=== PATIENT | female | born 1950 | race Caucasian/White ===

== ENCOUNTER 2021-08-10 10:43 | Outpatient (REF) | payer MEDICARE, SELFPAY ==
[2021-08-10 10:46] LABS: MANUAL DIFF FLAG NO
[2021-08-10 10:58] LABS: Appearance Urine HAZY; Color Urine YELLOW; Glucose Urine UA NEG (NEG); Leukocyte Esterase Urine 2+ (NEG); Nitrite Urine POS (NEG); PH 5.5 (5.0-8.0); Specific Gravity - Urine 1.025 (1.005-1.025); Urine Blood 1+ (NEG); Urine Ketones NEG (NEG); Urine Protein NEG (NEG-TRACE)
[2021-08-10 11:04] LABS: Basophils Percent Auto 0.2 % (0-2); Eosinophils Absolute Auto 0.1 X10*3/uL (0.0-0.4); Eosinophils Percent Auto 1.4 % (0-4); Hematocrit 47.4 % (37.0-47.0); Hemoglobin 15.2 g/dl (12.0-16.0); Imm Gran Abs Auto 0.05 X10*3/uL (0.00-0.03); Imm Gran Pct Auto 0.5 % (0.0-0.4); Lymphocytes Percent Auto 40.9 % (20-40); Mean Corpuscular HGB Conc 32.1 g/dl (31.0-35.0); Mean Corpuscular Hemoglobin 30.2 pg (27.0-33.0); Mean Corpuscular Volume 94.2 fL (80.0-98.0); Mean Platelet Volume 11.9 fL (9.4-12.3); Monocytes Absolute Auto 0.8 X10*3/uL (0.1-1.2); Monocytes Percent Auto 8.3 % (2-11); Neutrophils Absolute Auto 4.7 x10*3/uL (2.0-8.3); Neutrophils Percent Auto 48.7 % (45-73); Platelet Count 242 X10*3/uL (160-400); Red Blood Count 5.03 X10*6/uL (4.20-5.50); White Blood Count 9.7 X10*3/uL (4.8-10.8)
[2021-08-10 11:16] LABS: Alanine Aminotransferase 15 U/L (0-31); Albumin Level 3.9 g/dL (3.5-5.0); Alkaline Phosphatase 86 U/L (39-117); Anion Gap 11 (12-20); Aspartate Amino Transferase 18 U/L (5-31); Bilirubin Total 0.5 mg/dL (0.0-1.0); Blood Urea Nitrogen 20 mg/dL (9-16); Calcium 9.5 mg/dL (8.4-10.2); Carbon Dioxide 27 mmol/L (22-29); Chloride 109 mmol/L (96-108); Cholesterol 227 mg/dL; Estimated Glomerular Filt Rate > 60; Glucose Fasting 94 mg/dL (60-99); HDL Cholesterol 58 mg/dL; LDL Cholesterol Calculated 134 mg/dl; Potassium 4.1 mmol/L (3.3-5.1); Sodium 143 mmol/L (135-145); Total Protein 6.7 g/dL (6.5-8.0); Triglycerides 179 mg/dL
[2021-08-10 11:27] LABS: Bacteria Urine 4+ /LPF; RBC Urine 0-2 /HPF (0); Renal Epithelial Cells Urine TRACE /LPF; Squamous Epithelial Cell Urine 3+ /LPF
== END 2021-08-10 10:44 | disposition home or self-care (01) ==
LOC: HO.LNP 10:43
PROVIDERS: PCP Internal Medicine; Visit Provider Internal Medicine
DX: K58.9 Irritable bowel syndrome, unspecified (principal); M35.3 Polymyalgia rheumatica
CPT/HCPCS: 80053; 80061; 81001; 81003; 85025

== ENCOUNTER 2022-02-23 11:02 | Outpatient (REF) | payer MEDICARE, SELFPAY ==
[2022-02-23 11:26] LABS: Cholesterol 195 mg/dL; HDL Cholesterol 51 mg/dL; LDL Cholesterol Calculated 105 mg/dl; Triglycerides 195 mg/dL
[2022-02-23 12:42] LABS: Reflex LDLD? No
== END 2022-02-23 11:03 | disposition home or self-care (01) ==
LOC: HO.LNP 11:02
PROVIDERS: Visit Provider Internal Medicine
DX: E78.00 Pure hypercholesterolemia, unspecified (principal)
CPT/HCPCS: 80061

== ENCOUNTER 2022-08-12 10:16 | Outpatient (REF) | payer MEDICARE, SELFPAY ==
[2022-08-12 10:19] LABS: MANUAL DIFF FLAG NO
[2022-08-12 10:53] LABS: Appearance Urine Cloudy; Color Urine Yellow; Glucose Urine UA Negative (Negative); Leukocyte Esterase Urine Moderate (2+) (Negative); Nitrite Urine Positive (Negative); PH 5.5 (5.0-9.0); UMIC TRIGGER UACC YES; Urine Blood Small (1+) (Negative); Urine Ketones Negative (Negative); Urine Protein Negative (Neg-Trace)
[2022-08-12 11:04] LABS: Basophils Absolute Auto 0.1 X10*3/uL (0.0-0.2); Basophils Percent Auto 0.7 % (0-2); Eosinophils Absolute Auto 0.4 X10*3/uL (0.0-0.4); Eosinophils Percent Auto 5.2 % (0-4); Hematocrit 45.2 % (37.0-47.0); Hemoglobin 14.8 g/dl (12.0-16.0); Imm Gran Abs Auto 0.03 X10*3/uL (0.00-0.03); Imm Gran Pct Auto 0.4 % (0.0-0.4); Lymphocytes Absolute Auto 3.2 X10*3/uL (1.2-4.9); Lymphocytes Percent Auto 42.6 % (20-40); Mean Corpuscular HGB Conc 32.7 g/dl (31.0-35.0); Mean Corpuscular Volume 91.7 fL (80.0-98.0); Mean Platelet Volume 11.9 fL (9.4-12.3); Monocytes Absolute Auto 0.6 X10*3/uL (0.1-1.2); Monocytes Percent Auto 8.2 % (2-11); Neutrophils Absolute Auto 3.2 x10*3/uL (2.0-8.3); Neutrophils Percent Auto 42.9 % (45-73); Platelet Count 229 X10*3/uL (160-400); Red Blood Count 4.93 X10*6/uL (4.20-5.50); Red Cell Distribution Width 12.7 % (11.0-16.0); White Blood Count 7.5 X10*3/uL (4.8-10.8)
[2022-08-12 11:07] LABS: Alanine Aminotransferase 25 U/L (0-31); Albumin Level 3.9 g/dL (3.5-5.0); Alkaline Phosphatase 100 U/L (39-117); Anion Gap 9 (12-20); Aspartate Amino Transferase 26 U/L (5-31); Bilirubin Total 0.7 mg/dL (0.0-1.0); Blood Urea Nitrogen 21 mg/dL (9-16); Calcium 9.2 mg/dL (8.4-10.2); Carbon Dioxide 28 mmol/L (22-29); Chloride 109 mmol/L (96-108); Cholesterol 201 mg/dL; Estimated Glomerular Filt Rate 55; Glucose Fasting 100 mg/dL (60-99); HDL Cholesterol 39 mg/dL; LDL Cholesterol Calculated 130 mg/dl; Potassium 4.4 mmol/L (3.3-5.1); Sodium 142 mmol/L (135-145); Total Protein 6.3 g/dL (6.5-8.0); Triglycerides 164 mg/dL
[2022-08-12 11:13] LABS: Bacteria Urine 4+ (None Seen); Hyaline Casts Urine 0-2 /LPF (0-2); RBC Urine 0-2 /HPF (0-2); UACC Culture Trigger YES; WBC Urine >50 /HPF (0-5)
== END 2022-08-12 10:17 | disposition home or self-care (01) ==
LOC: HO.LNP 10:16
PROVIDERS: Visit Provider Internal Medicine
DX: I10 Essential (primary) hypertension (principal); E78.00 Pure hypercholesterolemia, unspecified; Z87.448 Personal history of other diseases of urinary system
CPT/HCPCS: 80053; 80061; 81001; 85025; 87086; 87088; 87186

== ENCOUNTER 2022-08-19 15:37 | Outpatient (REF) | payer MEDICARE, SELFPAY ==
[2022-08-19 15:45] LABS: Appearance Urine Clear; Color Urine Yellow; Glucose Urine UA Negative (Negative); Leukocyte Esterase Urine Small (1+) (Negative); Nitrite Urine Negative (Negative); PH 5.5 (5.0-9.0); UMIC TRIGGER UACC YES; Urine Blood Negative (Negative); Urine Ketones Negative (Negative); Urine Protein Negative (Neg-Trace)
[2022-08-19 15:47] LABS: Bacteria Urine 4+ (None Seen); Hyaline Casts Urine 0-2 /LPF (0-2); RBC Urine 0-2 /HPF (0-2); UACC Culture Trigger YES
== END 2022-08-19 15:38 | disposition home or self-care (01) ==
LOC: HO.LNP 15:37
PROVIDERS: Visit Provider Internal Medicine
DX: R31.9 Hematuria, unspecified (principal)
CPT/HCPCS: 81001; 87086; 87088; 87186

== ENCOUNTER 2022-09-16 12:14 | Outpatient (REF) | payer MEDICARE, SELFPAY ==
[2022-09-16 12:27] LABS: Appearance Urine Clear; Color Urine Yellow; Glucose Urine UA Negative (Negative); Leukocyte Esterase Urine Trace (Negative); Nitrite Urine Negative (Negative); Specific Gravity - Urine 1.015 (1.005-1.025); UMIC TRIGGER UACC YES; Urine Blood Negative (Negative); Urine Ketones Negative (Negative); Urine Protein Negative (Neg-Trace)
[2022-09-16 12:30] LABS: Bacteria Urine None Seen (None Seen); Hyaline Casts Urine 0-2 /LPF (0-2); RBC Urine 0-2 /HPF (0-2); WBC Urine 0-5 /HPF (0-5)
== END 2022-09-16 12:15 | disposition home or self-care (01) ==
LOC: HO.LNP 12:14
PROVIDERS: Visit Provider Internal Medicine
DX: R31.9 Hematuria, unspecified (principal)
CPT/HCPCS: 81001

== ENCOUNTER 2024-08-24 07:15 | Outpatient (REF) | payer MEDICARE, SELFPAY ==
[2024-08-24 10:43] LABS: MANUAL DIFF FLAG NO
[2024-08-24 11:11] LABS: Basophils Percent Auto 0.4 % (0-2); Eosinophils Absolute Auto 0.2 X10*3/uL (0.0-0.4); Eosinophils Percent Auto 2.8 % (0-4); Hematocrit 48.3 % (37.0-47.0); Hemoglobin 15.7 g/dl (12.0-16.0); Imm Gran Abs Auto 0.04 X10*3/uL (0.00-0.03); Imm Gran Pct Auto 0.5 % (0.0-0.4); Lymphocytes Percent Auto 38.2 % (20-40); Mean Corpuscular HGB Conc 32.5 g/dl (31.0-35.0); Mean Corpuscular Hemoglobin 29.3 pg (27.0-33.0); Mean Corpuscular Volume 90.1 fL (80.0-98.0); Mean Platelet Volume 11.9 fL (9.4-12.3); Monocytes Absolute Auto 0.6 X10*3/uL (0.1-1.2); Monocytes Percent Auto 7.6 % (2-11); Neutrophils Absolute Auto 3.9 x10*3/uL (2.0-8.3); Neutrophils Percent Auto 50.5 % (45-73); Platelet Count 230 X10*3/uL (160-400); Red Blood Count 5.36 X10*6/uL (4.20-5.50); White Blood Count 7.8 X10*3/uL (4.8-10.8)
[2024-08-24 11:24] LABS: Alanine Aminotransferase 25 U/L (0-31); Albumin Level 3.9 g/dL (3.5-5.0); Alkaline Phosphatase 107 U/L (39-117); Anion Gap 11 (12-20); Aspartate Amino Transferase 28 U/L (5-31); Bilirubin Total 0.5 mg/dL (0.0-1.0); Blood Urea Nitrogen 18 mg/dL (9-16); Calcium 9.4 mg/dL (8.4-10.2); Carbon Dioxide 24 mmol/L (22-29); Chloride 110 mmol/L (96-108); Cholesterol 191 mg/dL (<200); Estimated Glomerular Filt Rate > 60; Glucose Fasting 95 mg/dL (60-99); HDL Cholesterol 46 mg/dL (>40); LDL Cholesterol Calculated 113 mg/dL (<100); Potassium 4.2 mmol/L (3.3-5.1); Sodium 141 mmol/L (135-145); Triglycerides 164 mg/dL (<150)
--- OUTSIDE RECORDS SUMMARY | 2024-08-24 11:30 | XMS_ITS ---
Author Organization [facility] Address [address] [place] [address] Care Team Providers Care Supervisor Hanging And Trimming Name Role Phone Vik Herring MD Primary Care Provider Cesar Arauz Unavailable [phone] ALLERGIES Allergen (clinical drug ingredient) Drug/Non Drug Allergy documented on EMR Reaction Allergy Type Onset Date Status Seasonal IC Unknown Drug Allergy Activ e REASON FOR VISIT Patient presents today for a colon screening/EGD MEDICATIONS Medication SIG (Take, Route, Fr equency, Duration) Notes Start Date End Date Status Omeprazole 20 MG TAKE 1 CAPSULE BY [facility] DAILY Oral Active Valsartan 80 MG 1 tablet Orally Once a day for 30 day(s) Active Sertraline HCl 100 MG 1 tablet Orally Once a day Active Calcium 1200 1 tab Oral once a day Active Vitamin D 400 UNIT/ML 2 ml Orally Once a day Active Fish Oil 1200 MG 1 capsule Orally Once a day Active IMMUNIZATIONS Vaccine Route Administration Date Status Comme nts Influenza Unknown 07/12/2024 Refused SOCIAL HISTORY Tobacco Use: Social History Observation Description Date Details (start date - stop date) Never Smoker NA - NA Sex Assigned At : Social History Observation Description Sex Assigned At Unknown Tobacco Use/Smoking Question Answer Notes Patient is a nonsmoker Alcohol Screen Question Answer Notes Did you have a drink contain ing alcohol in the past year? Yes How often did you have a dri nk containing alcohol in the past year? Monthly or less (1 point) How many drinks did you have on a typical day when you were drinking in the past year? 1 or 2 drinks (0 point) How often did you have 6 or more drinks on one occasion in the past year? Never (0 point) Points 1 Interpretation Negative PROBLEMS Problem Type ICD Code Onset Dates Problem Status W/U Status Risk SNOMED Code Notes Problem Chronic GERD (K21.9) Active confirmed Gastroesophagea l reflux disease (disorder) (184816859) Problem Encounter for screening for malignant neoplasm of colon (Z12.11) Active confirmed Screening for malignant neoplasm of colon (130205883) VITAL SIGNS BMI 32.97 kg/m2 07/12/2024 Blood pressure systolic 000 mm Hg 07/12/19 25 Blood pressure diastolic 00 mm Hg 025 Height 64 in 07/12/2024 Temperature 97.1 degrees Fahrenheit 07/12/19 25 Weight 192 lb 2 oz lbs 07/12/2024 Encounters Encounter Location Date Provider Diagnosis [facility] [address] [place] [address] 07/12/2024 Cesar Santamaria Other irritable bowel syndrome K58.8 ; Chronic GERD K21.9 ; Encounter for screening for malignant neoplasm of colon Z12.11 and Family history of colon cancer Z80.0 ASSESSMENTS Encounter Date Diagnosis Assessment Notes Treatment Notes Treatment Clinical Notes 07/12/2024 Other irritable bowel syndrome (ICD-10 - K58.8) 07/12/2024 Chronic GERD (ICD-10 - K21.9) 07/12/2024 Encounter for screening for malignant neoplasm of colon (ICD-10 - Z12.11) Stop fish oil for 1 week before the colonoscopy 07/12/2024 Family history of colon cancer (ICD-10 - Z80.0) PLAN OF TREATMENT Medication Medication Name Sig Start Date Stop Date Notes Omeprazole 20 MG TAKE 1 CAPSULE BY MOUTH DAILY Oral Treatment Notes Assessment Notes Encounter for screening for malignant neoplasm of colon Stop fish oil for 1 week before the colonoscopy Future Test Test Name Order Date COLONOSCOPY 07/12/2024 Next Appt Details Follow Up: prn, Reason: Provider Name:Cesar Henson Rosalio , 10/17/2024 10:30:00 AM, [address] [place] [address] , [place], [place], [phone], Progress Notes * Examination Category Sub-Category Detail Notes General Examination GENERAL APPEARANCE: pleasant , well nourished, well developed, in no acute distress HEAD: EYES: sclera non-icteric EARS: NOSE: THROAT: NECK/THYROID: no cervical lymphade nopathy, neck supple HEART: S1, S2 normal CHEST: LUNGS: clear to auscultatio n bilaterally ABDOMEN: normal bowel sounds, no guarding or rigidity, no guarding or rigidity, no masses palpable, soft, nontender, nondistended NEUROLOGIC: alert and oriented SKIN: nonjaundiced, no spi roberto angiomata EXTREMITIES: no edema PERIPHERAL PULSES: BACK: BREASTS: MUSCULOSKELETAL: MALE GENITOURINARY: LYMPH NODES: RECTAL EXAM: FEMALE GENITOURINARY: ORAL CAVITY: mucosa moist
--- OUTSIDE RECORDS SUMMARY | 2024-08-24 11:30 | XMS_ITS ---
Author Organization Vik Herring MD Address [address] [place], [place] [phone] Care Team Providers Care Operations Supervisor Name Role Phone Nima Vik Primary Care Provider Results Component Value Reference Range Notes Complete Blood Count Auto Di ff (Not yet reviewed by provider) Interpretation: Performing Lab:[facility], [address] [place] [phone] Notes/Report: White Blood Count 7.8 4.8-10.8 X10*3/uL Red Blood Count 5.36 4.20-5.50 X10*6/uL Hemoglobin 15.7 12.0-16.0 g/dl Hematocrit 48.3 37.0-47.0 % Mean Corpuscular Volume 90.1 80.0-98.0 fL Mean Corpuscular Hemoglobin 29.3 27.0-33.0 pg Mean Corpuscular HGB Conc 32.5 31.0-35.0 g/dl Red Cell Distribution Width 13.0 11.0-16.0 % Platelet Count 230 160-400 X10*3/uL Mean Platelet Volume 11.9 9.4-12.3 fL Neutrophils Percent Auto 50.5 45-73 % Imm Gran Pct Auto 0.5 0.0-0.4 % Lymphocytes Percent Auto 38.2 20-40 % Monocytes Percent Auto 7.6 2-11 % Eosinophils Percent Auto 2.8 0-4 % Basophils Percent Auto 0.4 0-2 % NRBC Pct Auto 0.0 0.0-0.2 /100WBC Neutrophils Absolute Auto 3.9 2.0-8.3 x10*3/u L Imm Gran Abs Auto 0.04 0.00-0.03 X10*3/uL Lymphocytes Absolute Auto 3.0 1.2-4.9 X10*3/u L Monocytes Absolute Auto 0.6 0.1-1.2 X10*3/uL Eosinophils Absolute Auto 0.2 0.0-0.4 X10*3/u L Basophils Absolute Auto 0.0 0.0-0.2 X10*3/uL NRBC Abs Auto 0.000 0.0-0.012 X10*3/uL REASON FOR VISIT yearly fasting labs Encounters Encounter Location Date Provider Diagnosis Vik Herring MD [address] [place] [address] Drive [address] [place], [place] [phone] 08/24/2024 Vik Herring Labile hypertension I10 and Hypercholesterolemia E78.00 Assessments Encounter Date Diagnosis (ICD Code) Assessment Notes Treatment Notes Treatment Clinical Notes Section Notes 08/24/2024 Labile hypertension (ICD-10 - I10) 08/24/2024 Hypercholesterolemia (ICD-10 - E78.00) Plan Of Treatment Pending Test Test Name Order Date Complete Blood Count Auto Diff 5 Comprehensive [place]. Panel Fast 5 Lipid Panel 08/24/2024 UA ClnCatch+Micro w/rflx Cult 08/24/2024 Next Appt Details Provider Name:Vik Snell ier, 08/30/2024 11:00:00 AM, [address] [place] [address] Drive, [address], [place], [place], [phone], Progress Notes * Regi WARNER ADOB:[birth year] (74 yo F)Acc No.[id number]:08/24/2024 Progress Note Patient:?Regi WARNER A Provider:?Vik Herring MD :1950???Age:74 Y???Sex:Female D ate:08/24/2024 Address:[address] [place] [address] [address] [id number] Subjective: * Chief Complaints: * ???1. Yearly fasting labs. * Medical History:? Objective: * Vitals:? Assessment: * Assessment: 1.?Labile hypertension - I10 (Primary)???2.?Hypercholesterolemia - E78.00??? Plan: * Treatment: 2.?Hypercholesterolemia?LAB: Complete Blood Count Auto Diff (Collection Date & Time - 08/24/2024 07:15 AM) ?LAB: Comprehensive [place]. Panel Fast ?LAB: Lipid Panel ?LAB: UA ClnCatch+Micro w/rflx Cult * Procedure Codes:?50968 VENIP UNCT, ROUTINE* * * The named appointment provid er may or may not be the originator of this progress note, and it is not deemed complete until electronically signed by the appointment provider. Sign off status: Pending * Provider:?Vik Herring MD Date:?0 08/24/2024 Generated for Angella wang/Selena/Nachoitting on:?08/24/2024 11:29 AM EST
--- OUTSIDE RECORDS SUMMARY | 2024-08-24 11:30 | XMS_ITS ---
Author Organization Vik Herring MD Address [address] [place] [phone] Care Team Providers Care Civil Rights Investigator Name Role Phone Nima Vik Primary Care Provider Allergies No Known Allergies Reason For Referral Reason HISTORY OF HEMATEMES IS Diagnosis 1 History of hematemes is (Z87.19) Referral Organization Vik Herring MD Referring Provider First Name Vik Referring Provider Last Name Nima Referring Provider Speciality Internal M edicine Referred Provider Cesar Thomson Referred Provider Specialty Gastroentero logy General Notes Veronica Hernandez 02/24/2024 11:30:47 AM EDT > DR THOMSON OFFICE GAVE ME AN APPT FOR [place] IN JULY THAT IS WHEN SHE IS DUE FOR COLONOSCOPY. THEY HAD ME FAX THE REFERRAL AND NOTES FOR DR THOMSON TO REVIEW IN THE EVENT THAT HE WOULD LIKE TO SEE HER SOONER, Veronica Hernandez 08/02/2024 08:01:21 AM >OFFICE NOTE RECD Referral Priority Routine Referral Appointment Date 07/12/2024 REASON FOR VISIT 6 month, last week felt sick to her stomach then vomited a little was light red in color but had a glass of red wine before, c/o ongoing sciatica pain Medications Medication SIG (Take, Route, Frequency, Duration) Notes Start Date End Date Status Omeprazole 20 MG ONE DAILY Act poncho Fluticasone Propionate 0.050 Milligram 2 sprays each nostril daily Nasally Once a day for 30 Not-Taking Nasacort Allergy 24HR 55 MCG/ACT 1 spray in each nostril Nasally Once a day Active Fish Oil 500 MG 1 capsule Orally Onc e a day Active Caltrate 600+D 600-400 MG-UNIT 1 tablet with food Orally Once a day Active Sertraline HCl 100 MG TAKE ONE TABLET BY MOUTH EVERY DAY for 90 Active Tylenol Extra Strength 500 MG 1 tablet as needed Orally every 6 hrs Not-Taking Valsartan 80 MG TAKE ONE TABLET BY MOUTH EVERY DAY Active Ibuprofen 800 MG 1 tablet with food o r milk as needed Orally Three times a day for 30 days 02/06/2019 Not-Taking ZyrTEC Allergy 10 MG 1 tablet Orally Onc e a day Not-Taking Vital Signs Blood pressure systolic 132 mm Hg 02/24/20 24 Blood pressure diastolic 70 mm Hg 024 Height 64 in 02/24/2024 Weight 192 lbs 02/24/2024 BMI 32.95 kg/m2 02/24/2024 Encounters Encounter Location Date Provider Diagnosis Vik Herring MD [address] [place] [phone] 02/24/2024 Vik Herring Irritable bowel syndrome without diarrhea K58.9 ; Sciatica of right side M54.31 and History of hematemesis Z87.19 Assessments Encounter Date Diagnosis (ICD Code) Assessment Notes Treatment Notes Treatment Clinical Notes Section Notes 02/24/2024 Irritable bowel syndrome without diarrhea (ICD-10 - K58.9) ia the cause of the bloating 02/24/2024 Sciatica of right side (ICD-10 - M54.31) if not better to pssp 02/24/2024 History of hematemesis (ICD-10 - Z87.19) referral to dr thomson for colonoscopy and endoscopy/ APPT SCHEDULED FOR JUL 12 2024 AT 9:40, THAT IS THE TIME SHE IS DUE FOR COLONOSCOPY. DR THOMSON WILL REVIEW OFFICE NOTE AND REFERRAL TO SEE IF SHE SHOULD BE SCHEDULED SOONER Plan Of Treatment Treatment Notes Assessment Notes Irritable bowel syndrome without diarrhe a ia the cause of the bloating Sciatica of right side if not better to pssp History of hematemesis referral to dr lama iss for colonoscopy and endoscopy/ APPT SCHEDULED FOR JUL 12 2024 AT 9:40, THAT IS THE TIME SHE IS DUE FOR COLONOSCOPY. DR THOMSON WILL REVIEW OFFICE NOTE AND REFERRAL TO SEE IF SHE SHOULD BE SCHEDULED SOONER Referrals Referral Date Details 02/24/2024 02/24/2024, HISTORY OF HEMATEMESIS, Cesar Thomson Next Appt Details Follow Up: fter dr thomson, Re ason: Provider Name:Vik Snell ier, 08/30/2024 11:00:00 AM, [address] [place] [address], [address], [place], [place], [phone], Progress Notes * Regi WARNER ADOB:[birth year] (74 yo F)Acc No.[id number]:02/24/2024 Progress Notes Patient:?Regi Warner A Provider:?Vik Herring MD :1950???Age:74 Y???Sex:Female D ate:02/24/2024 Address:[address] [place] [address] , [id number] Subjective: * Chief Complaints: * ???6 monthLast week felt sic k to her stomach then vomited a little was light red in color but had a glass of red wine beforeC/o ongoing sciatica pain * HPI: ???Symptom(s):? patient is a 74 yo female here for 6 month follow up visit, vomitted last week and threw up some red. happened one other time and had been drinking red, also complainingof ongoing issues with sciatica. * ROS:?General/Constitutional:?Denies?Chills.?Denies?Fatigue.?Denies?Fever.?Denies?Headache.?ENT:?Patient denies?decreased sense of smell , any loss of taste , sore throat.?Denies?Sore throat.?Respiratory:?Denies?Cough.?Denies?Shortness of breath at rest.?Denies?Shortness of breath with exertion.?Gastrointestinal:?Denies?Diarrhea.?Admits?Heartburn.?Denies?Nausea.?Musculoskeletal:?Patient denies?muscle aches.? * Medical History:? * Surgical History:? * Hospitalization/Major Diagno stic Procedure:? * Medications:?TakingCaltrate 600+D 600-400 MG-UNIT Tablet 1 tablet with food Orally Once a dayNasacort Allergy 24HR 55 MCG/ACT Aerosol 1 spray in each nostril Nasally Once a dayFish Oil 500 MG Capsule 1 capsule Orally Once a dayOmeprazole 20 MG Capsule Delayed Release ONE DAILY Valsartan 80 MG Tablet TAKE ONE TABLET BY MOUTH EVERY DAY Sertraline HCl 100 MG Tablet TAKE ONE TABLET BY MOUTH EVERY DAY Taking Caltrate 600+D 600-400 MG-UNIT Tablet 1 tablet with food Orally Once a dayTaking Nasacort Allergy 24HR 55 MCG/ACT Aerosol 1 spray in each nostril Nasally Once a dayTaking Fish Oil 500 MG Capsule 1 capsule Orally Once a dayTaking Omeprazole 20 MG Capsule Delayed Release ONE DAILY Taking Valsartan 80 MG Tablet TAKE ONE TABLET BY MOUTH EVERY DAY Taking Sertraline HCl 100 MG Tablet TAKE ONE TABLET BY MOUTH EVERY DAY Not- Taking/PRNTylenol Extra Strength 500 MG Tablet 1 tablet as needed Orally every 6 hrsIbuprofen 800 MG Tablet 1 tablet with food or milk as needed Orally Three times a dayZyrTEC Allergy 10 MG Tablet 1 tablet Orally Once a dayFluticasone Propionate 0.050 Milligram Suspension 2 sprays each nostril daily Nasally Once a dayMedication List reviewed and reconciled with the patientNot-Taking/PRN Tylenol Extra Strength 500 MG Tablet 1 tablet as needed Orally every 6 hrsNot-Taking/PRN Ibuprofen 800 MG Tablet 1 tablet with food or milk as needed Orally Three times a dayNot-Taking/PRN ZyrTEC Allergy 10 MG Tablet 1 tablet Orally Once a dayNot-Taking/PRN Fluticasone Propionate 0.050 Milligram Suspension 2 sprays each nostril daily Nasally Once a dayMedication List reviewed and reconciled with the patient * Allergies:?N.K.D.A.yes[Aller gies Verified] Objective: * Vitals:?Ht: 64, Wt:192, BMI: 32.95, BP:132/70. * Examination: ???General Examination: ?GENERAL APPEARANCE:? alert, well hydrated, in no distress .?HEAD:? normocephalic.?SKIN:? good turgor.?HEART:? no murmurs, rubs, gallops, regular rate and rhythm.?LUNGS:? no wheezes, rales, rhonchi, good air movement, clear to auscultation bilaterally.?ABDOMEN:? no hepatosplenomegaly, soft, nontender, nondistended.? Assessment: * Assessment: 1.?Irritable bowel syndrome without diarrhea - K58.9 (Primary)?2.?Sciatica of right side - M54.31?3.?History of hematemesis - Z87.19? Plan: * Treatment: 2.?Sciatica of right side? Notes: if not better to pssp.?? 3.?History of hematemesis? Notes: referral to dr thomson for colonoscopy and endoscopy/ APPT SCHEDULED FOR JUL 12 2024 AT 9:40, THAT IS THE TIME SHE IS DUE FOR COLONOSCOPY. DR THOMSON WILL REVIEW OFFICE NOTE AND REFERRAL TO SEE IF SHE SHOULD BE SCHEDULED SOONER.? Referral To:Cesar Thomson??Gastroenterology ?Reason:HISTORY OF HEMATEMESIS * Procedure Codes:? * Follow Up:?fter dr thomson * * Sign off status: Completed true * Provider:?Vik Herring MD Date:?0 02/24/2024 Generated for Angella wang/Selena/eTfermin on:?08/24/2024 11:30 AM EST History and Physical Notes * HPI (History of Present Illness) Category Sub-Category Detail Notes Category Not es Symptom(s) patient is a 74 yo female here for 6 month follow up visit, vomitted last week and threw up some red. happened one other time and had been drinking red, also complainingof ongoing issues with sciatica Examination Category Sub-Category Detail Notes Category Not es General Examination GENERAL APPEARANCE: alert, w ell hydrated, in no distress HEAD: normocephalic HEART: no murmurs, rubs, ga llops, regular rate and rhythm LUNGS: no wheezes, rales, r honchi, good air movement, clear to auscultation bilaterally ABDOMEN: no hepatosplenomegal y, soft, nontender, nondistended SKIN: good turgor Consultation Request Notes Referral Date Referring Provider Referred Provider Not es 02/24/2024 Vik Herring Robert HISTORY OF HEMATEMESIS
--- OUTSIDE RECORDS SUMMARY | 2024-08-24 11:30 | XMS_ITS | Patient Health Record ---
Author Organization [facility] Address [address] [place] [address] Care Team Providers Care Honey Processor Name Role Phone Vik Herring MD Primary Care Provider Cesar Arauz Unavailable [phone] ALLERGIES Allergen (clinical drug ingredient) Drug/Non Drug Allergy documented on EMR Reaction Allergy Type Onset Date Status Seasonal IC Unknown Drug Allergy Activ e REASON FOR REFERRAL No Information MEDICATIONS Medication SIG (Take, Route, Fr equency, Duration) Notes Start Date End Date Status Omeprazole 20 MG TAKE 1 CAPSULE BY [facility] DAILY Oral Active Valsartan 80 MG [...] Administration Date Status Comme nts Influenza Unknown 05/11/2017 Administered Influenza Unknown 03/11/2021 Administered Influenza Unknown 07/12/2024 Refused SOCIAL HISTORY Tobacco [...] W/U Status Risk SNOMED Code Notes Problem Blood in stool (K92.1) Active confirmed 72346870 Problem Other irritable bowel syndrome (K58.8) Active confirmed 50943713 Problem Change in bowel habits (R19.4) Active confirmed 288480895 Problem Family history of colon cancer (Z80.0) Active confirmed 098201428 Problem Chronic GERD (K21.9) Active confirmed Gastroesophagea l reflux disease (disorder) (297617841) Problem Encounter for screening for malignant neoplasm of colon (Z12.11) Active confirmed Screening for malignant neoplasm of colon (349672730) VITAL SIGNS Temperature 97.1 degrees Fahrenheit 07/12/2024 Blood pressure diastolic 00 mm Hg 07/12/2024 Height 64 in 07/12/2024 Blood pressure systolic 000 mm Hg 07/12/2024 Weight 192 lb 2 oz lbs 07/12/2024 BMI 32.97 kg/m2 07/12/2024 Encounters Encounter Location Date Provider Diagnosis [facility] [address] [place] [address] 07/12/2024 Cesar Santamaria Other irritable bowel syndrome [...] cancer (ICD-10 - Z80.0) PLAN OF TREATMENT Future Test Test Name Order Date COLONOSCOPY 06/07/2017 COLONOSCOPY 07/12/2024 Next Appt Details Provider Name:Cesar Santamaria , 10/17/2024 10:30:00 AM, [address] [facility] [facility] , [place], [place], [phone], Insurance Providers Payer Name Payer Address Payer Phone Subscriber Number Group Number Insured Name Patient Relationship to Insured Coverage Start Date Coverage End Date MEDICARE OF [place] [address] [place] [address] [id number] WARNERJEANNIE SMITH Self - patient is the insured [employer] ATT[employer] CLAIMS [address] [place] [address] [id number] JEANNIE WARNER Self - patient is the insured MEDICAL (GENERAL) HISTORY Medical History History ICD Code Denies [place],DM,CVA,Lung disease,renal dise ase Urinary incontinence-mild GERD--EGD in 2004--small hia josé antonio hernia--no esophagitis nor Gee's esophagus Anxiety/depression--mild Hematuria--having a cystoscopy in 7 negative colonoscopies in , 2004, 2009, and 07/2017--- sigmoid diverticulosis and internal hemorrhoids Arthritis Hypertension Polymyalgia rheumatica Surgical History Surgery Date(Month/Year)
--- OUTSIDE RECORDS SUMMARY | 2024-08-24 11:31 | XMS_ITS ---
Author Organization Vik Herring MD Address [address] [place] [phone] Care Team Providers Care Supervisor Home Restoration Service Name Role Phone NimaReynan Primary Care Provider [phone] Encounters Encounter Location Date Provider Diagnosis Vik Herring MD [address] [facility] [address] [place] [phone] 02/27/2024 Vik Herring Plan Of Treatment Next Appt Details Provider Name:Vik Snell ier, 08/30/2024 11:00:00 AM, [address] [facility], [address] [facility], [place], [place], [phone], Progress Notes * Regi WARNER ADOB:[birth year] (74 yo F)Acc No.[id number]:02/27/2024 Patient:?Regi Warner :1950???Age:74 Y???Sex:Female Address:[address] [place] [address] Subjective: * Chief Complaints: * ??? * Medical History:? * Surgical History:? * Hospitalization/Major Diagno stic Procedure:? * Medications:? Objective: Assessment: Plan: * Treatment: * Procedure Codes:? * true * Date:? Generated for Angella wang/Selena/Deo on:?08/24/2024 11:30 AM EST
== END 2024-08-24 07:16 | disposition home or self-care (01) ==
LOC: HO.LNP 07:15
PROVIDERS: Visit Provider Internal Medicine
DX: I10 Essential (primary) hypertension (principal); E78.00 Pure hypercholesterolemia, unspecified
CPT/HCPCS: 80053; 80061; 85025

== ENCOUNTER 2024-08-30 15:24 | Outpatient (REF) | payer MEDICARE, SELFPAY ==
[2024-08-30 15:38] LABS: Appearance Urine Clear; Color Urine Yellow; Glucose Urine UA Negative (Negative); Leukocyte Esterase Urine Negative (Negative); Nitrite Urine Negative (Negative); PH 5.5 (5.0-9.0); Specific Gravity - Urine >= 1.030 (1.005-1.025); Urine Blood Negative (Negative); Urine Ketones Negative (Negative); Urine Protein Negative (Neg-Trace)
[2024-08-30 15:44] LABS: Bacteria Urine None Seen (None Seen); RBC Urine 0-2 /HPF (0-2); WBC Urine 0-5 /HPF (0-5)
--- OUTSIDE RECORDS SUMMARY | 2024-08-30 16:28 | XMS_ITS ---
Author Organization Vik Herring MD Address [address] [place] [phone] Care Team Providers Care Special Education Associate Name Role Phone Nima Vik Primary Care Provider [phone] Results Component Value Reference Range Notes Complete Blood Count Auto Di ff Reviewed date:08/24/2024 12:46:19 PM Interpretation: Performing Lab:[facility], [address] [place] [phone] Notes/Report: White Blood Count 7.8 4.8-10.8 X10*3/uL [...] Location Date Provider Diagnosis Vik Herring MD [address] [place] [address] [place] [phone] 08/24/2024 Vik Herring Labile hypertension I10 and Hypercholesterolemia E78.00 Assessments Encounter Date Diagnosis (ICD Code) Assessment Notes Treatment Notes Treatment Clinical Notes Section Notes 08/24/2024 Labile hypertension (ICD-10 - I10) 08/24/2024 Hypercholesterolemia (ICD-10 - E78.00) Plan Of Treatment Pending Test Test Name Order Date Comprehensive [place]. Panel Fast Lipid Panel 08/24/2024 UA ClnCatch+Micro w/rflx Cult 08/24/2024 Next Appt Details Provider Name:Vik ashley, 11/06/2024 10:15:00 AM, [address] [place] [address], Suite [facility], [place], [place], [phone], Provider Name:Vik ashley, 08/27/2025 08:00:00 AM, [address] [place] [address], Suite [facility], [place], [place], [phone], Provider Name:Vik ashley, 09/03/2025 02:30:00 PM, [address] [facility], [address], [place], [place], [phone], Progress Notes * Regi WARNER ADOB:[birth year] (74 yo F)Acc No.[id number]:08/24/2024 Progress Note Patient:?Regi WARNER Provider:?Vik Herring MD :1950???Age:74 Y???Sex:Female D ate:08/24/2024 Address:[address] [place] [address] [id number] Subjective: * Chief Complaints: * ???1. Yearly fasting labs. * Medical History:? Objective: * Vitals:? Assessment: * Assessment: 1.?Labile hypertension - I10 (Primary)???2.?Hypercholesterolemia - E78.00??? Plan: * Treatment: 2.?Hypercholesterolemia?LAB: Comprehensive [place]. Panel Fast ?LAB: Lipid Panel ?LAB: UA ClnCatch+Micro w/rflx Cult ?LAB: Complete Blood Count Auto Diff (Collection Date & Time - 08/24/2024 07:15 AM) * Procedure Codes:?47832 VENIP UNCT, ROUTINE* * * The named appointment provid er may or may not be the originator of this progress note, and it is not deemed complete until electronically signed by the appointment provider. Sign off status: Pending * Provider:?Vik Herring MD Date:?0 08/24/2024 Generated for Angella wang/Selena/eTransmitting on:?08/30/2024 04:28 PM EST
--- OUTSIDE RECORDS SUMMARY | 2024-08-30 16:29 | XMS_ITS ---
Author Organization [facility] Address [address] [place] [address] Care Team Providers Care Thread Trimmer Name Role Phone Vik Herring MD Primary Care Provider Cesar Arauz Unavailable [phone] ALLERGIES Allergen (clinical drug ingredient) Drug/Non Drug Allergy documented on EMR Reaction Allergy Type Onset Date Status Seasonal IC Unknown Drug Allergy Activ e REASON FOR VISIT Patient presents today for a colon screening/EGD MEDICATIONS Medication SIG (Take, Route, Fr equency, Duration) Notes Start Date End Date Status Omeprazole 20 MG TAKE 1 CAPSULE BY [facility] DAILY Oral Active Valsartan 80 MG [...] Active confirmed Gastroesophagea l reflux disease (disorder) (517589280) Problem Encounter for screening for malignant neoplasm of colon (Z12.11) Active confirmed Screening for malignant neoplasm of colon (929934166) VITAL SIGNS BMI 32.97 kg/m2 07/12/2024 Blood pressure systolic 000 mm Hg 07/12/19 25 Blood pressure diastolic 00 mm Hg 025 Height 64 in 07/12/2024 Temperature 97.1 degrees Fahrenheit 07/12/19 25 Weight 192 lb 2 oz lbs 07/12/2024 Encounters Encounter Location Date Provider Diagnosis [facility] [address] [place] [address] 07/12/2024 Cesar Santamaria Other irritable bowel syndrome [...] Name:Cesar Henson Rosalio , 10/17/2024 10:30:00 AM, [address] [place] [address] , [place], [place], [phone], Progress Notes * Examination Category Sub-Category Detail [...]
--- OUTSIDE RECORDS SUMMARY | 2024-08-30 16:29 | XMS_ITS ---
Author Organization Vik Herring MD Address [address] [facility] [address] [place] [phone] Care Team Providers Care Director Construction Services Name Role Phone Vik Herring Primary Care Provider [phone] Encounters Encounter Location Date Provider Diagnosis Vik Herring MD [address] [facility] [address] [place] [phone] 02/27/2024 Vik Herring Plan Of Treatment Next Appt Details Provider Name:Vik Snell ier, 11/06/2024 10:15:00 AM, [address] [place] [address], [address], [phone], Provider Name:Vik Snell ier, 08/27/2025 08:00:00 AM, [address] [place] [address], [phone], Provider Name:Vik Snell ier, 09/03/2025 02:30:00 PM, [address] [place] [address], [address], [phone], Progress Notes * Regi WARNER ADOB:[birth year] (74 yo F)Acc No.[id number]:02/27/2024 Patient:?Regi Warner :1950???Age:74 Y???Sex:Female Address:[address] [place] [address] [place] [address] Subjective: * Chief Complaints: * ??? * Medical History:? * Surgical History:? * Hospitalization/Major Diagno stic Procedure:? * Medications:? Objective: Assessment: Plan: * Treatment: * Procedure Codes:? * true * Date:? Generated for Angella wang/Selena/eTprachismnikko on:?08/30/2024 04:29 PM EST
--- OUTSIDE RECORDS SUMMARY | 2024-08-30 16:29 | XMS_ITS ---
Author Organization Vik Herring MD Address [address] [place] [phone] Care Team Providers Care Leasing Manager Name Role Phone Nima Vik Primary Care Provider Allergies No Known Allergies Results Component Value Reference Range Notes UA ClnCatch+Micro w/rflx Cul t (Not yet reviewed by provider) Interpretation: Performing Lab:[facility], [address] [place] [id number] Notes/Report: Urine, Clean Catch Color Urine Yellow Appearance Urine Clear PH 5.5 5.0-9.0 Glucose Urine UA Negative Negative mg/dL Urine Blood Negative Negative Specific [place] - Urine >= 1.030 1.005-1.025 Urine Protein Negative Neg-Trace mg/dL Urine Ketones Negative Negative mg/dL Nitrite Urine Negative Negative Leukocyte Esterase Urine Negative Negative RBC Urine 0-2 0-2 /HPF WBC Urine 0-5 0-5 /HPF Squamous Epithelial Cell Urine 6-10 0-2 /HPF Bacteria Urine None Seen None Seen Hyaline Casts Urine 3-5 0-2 /LPF REASON FOR VISIT comp visit Medications Medication SIG (Take, Route, Frequency, Duration) Notes Start Date End Date Status Tylenol Extra Strength 500 MG 1 tablet as needed Orally every 6 hrs Not-Taking ZyrTEC Allergy 10 MG 1 tablet Orally Onc e a day Not-Taking Ibuprofen 800 MG 1 tablet with food o r milk as needed Orally Three times a day for 30 days 02/06/2019 Not-Taking Fluticasone Propionate 0.050 Milligram 2 sprays each nostril daily Nasally Once a day for 30 Not-Taking buPROPion HCl ER (XL) 150 MG 1 tablet in the morning Orally Once a day for 30 days 08/30/2024 Active Valsartan 80 MG TAKE ONE TABLET BY MOUTH EVERY DAY for 90 Active Omeprazole 20 MG ONE DAILY Act poncho Sertraline HCl 100 MG TAKE ONE TABLET BY MOUTH EVERY DAY for 90 Active Fish Oil 500 MG 1 capsule Orally Onc e a day Active Nasacort Allergy 24HR 55 MCG/ACT 1 spray in each nostril Nasally Once a day Active Caltrate 600+D 600-400 MG-UNIT 1 tablet with food Orally Once a day Active Social History Tobacco Use: Social History Observation Description Date Details (start date - stop date) Former Smoker NA - NA Tobacco Use/Smoking Question Answer Notes Patient is a former smoker How long has it been since y ou last smoked? > 10 years Additional Findings: Tobacco Non-User Fo rmer smoker, currently using no form of tobacco Alcohol Screen Question Answer Notes Did you [...] Never (0 point) Points 1 Interpretation Negative Vital Signs Blood pressure systolic 122 mm Hg 08/30/19 25 Blood pressure diastolic 76 mm Hg 025 Height 64 in 08/30/2024 Weight 190 lbs 08/30/2024 BMI 32.61 kg/m2 08/30/2024 Encounters Encounter Location Date Provider Diagnosis Vik Herring MD [address] [place], [place] [phone] 08/30/2024 Vik Herring History of hematuria Z87.448 ; Depression F32.[address] R68.82 Assessments Encounter Date Diagnosis (ICD Code) Assessment Notes Treatment Notes Treatment Clinical Notes Section Notes 08/30/2024 History of hematuria (ICD-10 - Z87.448) has been evaluated in past 08/30/2024 Depression (ICD-10 - F32.9) doing well on meds. 08/30/[address] (ICD-10 - R68.82) maybe related to the antidepressants Plan Of Treatment Medication Medication Name Sig Start Date Stop Date Notes buPROPion HCl ER (XL) 150 MG 1 tablet in the morning Orally Once a day for 30 days 08/30/2024 Treatment Notes Assessment Notes History of hematuria has been evaluated in past Depression doing well on meds. Decreased sex drive maybe related to the antidepressants Pending Test Test Name Order Date UA ClnCatch+Micro w/rflx Cult 08/30/2024 Next Appt Details Follow Up: 2 Months, Reason: Provider Name:Vik ashley, 11/06/2024 10:15:00 AM, [address] [place] [address], [address] [facility], [place], [place], [phone], Provider Name:Vik ashley, 08/27/2025 08:00:00 AM, [address] [place] [address], [address], [place], [place], [phone], Provider Name:Vik ashley, 09/03/2025 02:30:00 PM, [address] [place] [address], [address], [place], [place], [phone], Progress Notes * Regi WARNER ADOB:[birth year] (74 yo F)Acc No.[id number]:08/30/2024 Patient:?Regi WARNER Provider:?Vik Herring MD :1950???Age:74 Y???Sex:Female D ate:08/30/2024 Address:[address] [place] [address] [id number] Subjective: * Chief Complaints: * ???1. Comp visit. * HPI: ???Depression Screening:?PHQ-9?Little interest or pleasure in doing things?Not at all,?Feeling down, depressed, or hopeless?Not at all,?Trouble falling or staying asleep, or sleeping too much?Not at all,?Feeling tired or having little energy?Not at all,?Poor appetite or overeating?Not at all,?Feeling bad about yourself or that you are a failure, or have let yourself or your family down?Not at all,?Trouble concentrating on things, such as reading the newspaper or watching television?Not at all,?Moving or speaking so slowly that other people could have noticed; or the opposite, being so fidgety or restless that you have been moving around a lot more than usual?Not at all,?Thoughts that you would be better off or of hurting yourself in some way?Not at all,?Total Score?0.? here for yearly exam. ???Communication Needs:?Communication Needs?Does the patient have a hearing impairment?No,?Does the patient have a vision impairment??Yes,?If yes, what is the vision impairment??Glasses,?Does the patient have a cognition impairment??No.?Fall Risk:?History?Have you had any falls with injury in the past year??No,?Have you had two or more falls in the past year??No.?SDOH Questions:?SDOH Questions?In the past year have you been worried about losing housing??No,?In the past year have you or any family members you live with been unable to get any of the following when it was really needed? Check all that apply:?None.? * ROS:?General/Constitutional:?Change in appetite?denies.?Chills?denies.?Fever?denies.?Ophthalmologic:?Blurred vision?denies.?Discharge?denies.?Pain?denies.?ENT:?Decreased hearing?denies.?Sore throat?denies.?Swollen glands?denies.?Endocrine:?Cold intolerance?denies.?Excessive thirst?denies.?Heat intolerance?denies.?Weight loss?denies.?Respiratory:?Cough?denies.?Shortness of breath at rest?denies.?Shortness of breath with exertion?denies.?Wheezing?denies.?Cardiovascular:?Chest pain at rest?denies.?Chest pain with exertion?denies.?Irregular heartbeat?denies.?Shortness of breath?denies.?Gastrointestinal:?Abdominal pain?denies.?Change in bowel habits?denies.?Diarrhea?denies.?Nausea?denies.?Rectal bleeding?denies.?Vomiting?denies .?Genitourinary:?Blood in urine?denies.?Difficulty urinating?denies.?Frequent urination?denies.?Urinary incontinence?Denies.?Musculoskeletal:?Painful joints?denies.?Weakness?denies.?Skin:?Dry skin?denies.?Itching?denies.?Denies?Mole(s),? changes in moles, new moles or any lesions of concern.?Denies?Photosensitivity.?Rash?denies.?Neurologic:?Dizziness?denies.?Fainting?denies.?Headache?denies.?Psychiatric:?Patient complaining of?concerned about diminished sex drive.? * Medical History:?04/2010 Col onoscopy - repeat in 10 years; colonoscopy done 08/02/[address] Santamaria - repeat @ age 74, 08/2007 Bone density; DONE 08/20/15, Done 11/21/18, 10/11/2013 - [facility] - repeat two years, Had evaluation for hematuria and was negative 2015, Cologard 11/29 negative. * Family History:?Father: dece ased 68 yrs, diagnosed with Hypertension.?Mother: 72 yrs.?3 sister(s) - healthy. 2 daughter(s) - healthy. .? mother, hemachromatosis 3 brothers & 1 sister, Denies mental health/substance abuse family history, Denies mental health/substance abuse family history, Denies mental health/substance abuse family history. * Social History:?Tobacco Use:?Tobacco Use/Smoking?Patient is a?former smoker,?How long has it been since you last smoked??> 10 years,?Additional Findings: Tobacco Non-User?Former smoker, currently using no form of tobacco.?Drugs/Alcohol:?Alcohol Screen?Did you have a drink containing alcohol in the past year??Yes,?How often did you have a drink containing alcohol in the past year??Monthly or less (1 point),?How many drinks did you have on a typical day when you were drinking in the past year??1 or 2 drinks (0 point),?How often did you have 6 or more drinks on one occasion in the past year??Never (0 point),?Points?1,?Interpretation?Negative.?Miscellaneous:?Caffeine: yes, frequency:, 1-2 cups per day. Children: yes. Exercise: no. Home smoke detector use: yes. Housing: owning. Living with: spouse. Marital status: . Pets: none. Travel outside of the [place]: no. * Medications:?Taking Caltrate 600+D 600-400 MG-UNIT Tablet 1 tablet with food Orally Once a day , Taking Nasacort Allergy 24HR 55 MCG/ACT Aerosol 1 spray in each nostril Nasally Once a day , Taking Fish Oil 500 MG Capsule 1 capsule Orally Once a day , Taking Omeprazole 20 MG Capsule Delayed Release ONE DAILY , Taking Valsartan 80 MG Tablet TAKE ONE TABLET BY MOUTH EVERY DAY , Taking Sertraline HCl 100 MG Tablet TAKE ONE TABLET BY MOUTH EVERY DAY , Not-Taking/PRN Tylenol Extra Strength 500 MG Tablet 1 tablet as needed Orally every 6 hrs , Not-Taking/PRN Ibuprofen 800 MG Tablet 1 tablet with food or milk as needed Orally Three times a day , Not-Taking/PRN ZyrTEC Allergy 10 MG Tablet 1 tablet Orally Once a day , Not-Taking/PRN Fluticasone Propionate 0.050 Milligram Suspension 2 sprays each nostril daily Nasally Once a day , Medication List reviewed and reconciled with the patient * Allergies:?N.K.D.A. Objective: * Vitals:?Ht: 64, Wt: 190, BMI :32.61, BP:122/76, Wt-k.18. * ???Past Orders: ???Lab:Complete Blood Count Auto Diff (Order Date - 08/24/2024) (Collection Date & Time - 08/24/2024 07:15 AM) ? Value Reference Range ?White Blood Count 7.8 4. 8-10.8 - X10*3/uL ?Red Blood Count 5.36 4.20 -5.50 - X10*6/uL ?Hemoglobin 15.7 12.0-16.0 - g/dl ?Hematocrit 48.3 H 37.0-47.0 - % ?Mean Corpuscular Volume 90.1 80.0-98.0 - fL ?Mean Corpuscular Hemoglobin 29.3 27.0-33.0 - pg ?Mean Corpuscular HGB Conc 32.5 31.0-35.0 - g/dl ?Red Cell Distribution Width 13.0 11.0-16.0 - % ?Platelet Count 230 160-4 00 - X10*3/uL ?Mean Platelet Volume 11.9 9.4-12.3 - fL ?Neutrophils Percent Auto 50.5 45-73 - % ?Imm Gran Pct Auto 0.5 H 0. 0-0.4 - % ?Lymphocytes Percent Auto 38.2 20-40 - % ?Monocytes Percent Auto 7.6 2-11 - % ?Eosinophils Percent Auto 2.8 0-4 - % ?Basophils Percent Auto 0.4 0-2 - % ?NRBC Pct Auto 0.0 0.0-0. 2 - /100WBC ?Neutrophils Absolute Auto 3.9 2.0-8.3 - x10*3/uL ?Imm Gran Abs Auto 0.04 H 0. 00-0.03 - X10*3/uL ?Lymphocytes Absolute Auto 3.0 1.2-4.9 - X10*3/uL ?Monocytes Absolute Auto 0.6 0.1-1.2 - X10*3/uL ?Eosinophils Absolute Auto 0.2 0.0-0.4 - X10*3/uL ?Basophils Absolute Auto 0.0 0.0-0.2 - X10*3/uL ?NRBC Abs Auto 0.000 0.0-0. 012 - X10*3/uL * Examination: ???General Examination: ?GENERAL APPEARANCE:?well developed, well nourished, in no acute distress.?HEAD:?normocephalic, atraumatic.?EYES:?pupils equal, round, reactive to light and accommodation, sclera non-icteric.?EARS:?normal.?ORAL CAVITY:?mucosa moist.?THROAT:?clear.?NECK/THYROID:?neck supple, full range of motion, no cervical lymphadenopathy, no bruits.?SKIN:?warm and dry, no suspicious lesions, abnormal with a cyst on back is going to get it removed by dermatology.?HEART:?regular rate and rhythm, S1, S2 normal, no murmurs.?LUNGS:?clear to auscultation bilaterally.?BREASTS:?No mass, no lump.?ABDOMEN:?soft, nontender, nondistended, bowel sounds present, normal, no organomegaly , no masses palpable.?RECTAL EXAM:?not done.?FEMALE GENITOURINARY:?done by [facility].?EXTREMITIES:?no clubbing, cyanosis, or edema.?NEUROLOGIC:?nonfocal, motor strength normal upper and lower extremities, sensory exam intact.? Assessment: * Assessment: 1.?History of hematuria - Z8 7.448 (Primary)???2.?Depression - F32.9???3.?Decreased sex drive - R68.82??? Plan: * Treatment: 2.?Depression? Start buPROPion HCl ER (XL) Tablet Extended Release 24 Hour, 150 MG, 1 tablet in the morning, Orally, Once a day, 30 days, 30, Refills 3.?? Notes: doing well on meds.?? 3.?Decreased sex drive? Notes: maybe related to the antidepressants?? * Follow Up:?2 Months * * The named appointment provid er may or may not be the originator of this progress note, and it is not deemed complete until electronically signed by the appointment provider. Sign off status: Pending * Provider:?Vik Herring MD Date:?0 08/30/2024 Generated for Angella wang/Selena/Nachoitting on:?08/30/2024 04:29 PM EST History and Physical Notes * HPI (History of Present Illness) Category Sub-Category Detail Notes Category Not es Depression Screening PHQ-9 Little inte rest or pleasure in doing things: Not at all here for yearly exam Feeling down, depressed, or hopeless: No t at all Trouble falling or staying asleep, or sl eeping too much: Not at all Feeling tired or having little energy: N ot at all Poor appetite or overeating: Not at all Feeling bad about yourself o r that you are a failure, or have let yourself or your family down: Not at all Trouble concentrating on thi ngs, such as reading the newspaper or watching television: Not at all Moving or speaking so slowly that other people could have noticed; or the opposite, being so fidgety or restless that you have been moving around a lot more than usual: Not at all Thoughts that you would be b yury off or of hurting yourself in some way: Not at all Total Score: 0 SDOH Questions SDOH Questions In the past year have you been worried about losing housing?: No In the past year have you or any family members you live with been unable to get any of the following when it was really needed? Check all that apply:: None Fall Risk History Have you had any falls with injury i n the past year?: No Have you had two or more falls in the year?: No Communication Needs Communication Needs Does the patient have a hearing impairment: No Does the patient have a vision impairmen t?: Yes ?If yes, what is the vision impairment?: Glasses Does the patient have a cognition impair ment?: No Examination Category Sub-Category Detail Notes Category Not es General Examination GENERAL APPEARANCE: well dev eloped, well nourished, in no acute distress HEAD: normocephalic, atrau matic EYES: pupils equal, round, reactive to light and accommodation, sclera non- icteric EARS: normal THROAT: clear NECK/THYROID: neck supple, full ra nge of motion, no cervical lymphadenopathy, no bruits HEART: regular rate and rhy thm, S1, S2 normal, no murmurs LUNGS: clear to auscultatio n bilaterally ABDOMEN: soft, nontender, non distended, bowel sounds present, normal, no organomegaly , no masses palpable NEUROLOGIC: nonfocal, motor stre ngth normal upper and lower extremities, sensory exam intact SKIN: warm and dry, no germain picious lesions, abnormal with a cyst on back is going to get it removed by dermatology EXTREMITIES: no clubbing, cyanosi s, or edema BREASTS: No mass, no lump RECTAL EXAM: not done FEMALE GENITOURINARY: done by [facility] ORAL CAVITY: mucosa moist
--- OUTSIDE RECORDS SUMMARY | 2024-08-30 16:29 | XMS_ITS | Patient Health Record ---
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 Name Role Phone Vik Herring MD Primary Care Provider Cesar Arauz Unavailable [phone] ALLERGIES Allergen (clinical drug ingredient) Drug/Non Drug Allergy documented on EMR Reaction Allergy Type Onset Date Status Seasonal IC Unknown Drug Allergy Activ e REASON FOR REFERRAL No Information MEDICATIONS Medication SIG (Take, Route, Fr equency, Duration) Notes Start Date End Date Status Omeprazole 20 MG TAKE 1 CAPSULE BY [facility] DAILY Oral Active Valsartan 80 MG 1 [...] Problem Blood in stool (K92.1) Active confirmed 51914013 Problem Other irritable bowel syndrome (K58.8) Active confirmed 20887335 Problem Change in bowel habits (R19.4) Active confirmed 507407518 Problem Family history of colon cancer (Z80.0) Active confirmed 736058087 Problem Chronic GERD (K21.9) Active confirmed Gastroesophagea l reflux disease (disorder) (985609711) Problem Encounter for screening for malignant neoplasm of colon (Z12.11) Active confirmed Screening for malignant neoplasm of colon (534181850) VITAL SIGNS Temperature 97.1 degrees Fahrenheit 07/12/2024 Blood pressure diastolic 00 mm Hg 07/12/2024 Height 64 in 07/12/2024 Blood pressure systolic 000 mm Hg 07/12/2024 Weight 192 lb 2 oz lbs 07/12/2024 BMI 32.97 kg/m2 07/12/2024 Encounters Encounter Location Date Provider Diagnosis [facility] [address] [facility] [address] [place] [address] 07/12/2024 Cesar Santamaria Other irritable bowel syndrome [...] Name:Cesar Santamaria , 10/17/2024 10:30:00 AM, [address] [facility] , [place], [place], [phone], Insurance Providers Payer Name Payer Address Payer Phone Subscriber Number Group Number Insured Name Patient Relationship to Insured Coverage Start Date Coverage End Date MEDICARE OF [place] [address] [place] [address] [id number] WARNERJEANNIE SMITH Self - patient is the insured [employer] ATT[employer] CLAIMS [address] [place] [address] [phone] [id number] JEANNIE WARNER Self - patient is the insured MEDICAL (GENERAL) HISTORY Medical History History ICD Code Denies [place],DM,CVA,Lung disease,renal dise ase Urinary incontinence-mild GERD--EGD in 2004--small hia josé antonio hernia--no esophagitis nor Gee's esophagus Anxiety/depression--mild Hematuria--having a cystoscopy in 7 negative colonoscopies in , 2004, 2009, and 07/2017--- sigmoid diverticulosis and internal hemorrhoids Arthritis Hypertension Polymyalgia rheumatica Surgical History Surgery Date(Month/Year)
== END 2024-08-30 15:25 | disposition home or self-care (01) ==
LOC: HO.LNP 15:24
PROVIDERS: Visit Provider Internal Medicine
DX: Z87.448 Personal history of other diseases of urinary system (principal)
CPT/HCPCS: 81001

== ENCOUNTER 2024-09-20 12:53 | Outpatient (AMB) | payer MEDICARE, SELFPAY ==
[2024-09-20 12:55] VITALS: BP 140/64; PULSE 82; O2SAT 93; BMI 32.3
--- NOTE | 2024-09-20 12:55 | MHC.OFFVIS ---
Vital Signs 09/20/24 12:55 Height 5 ft 4 in Weight 188 lb 4.396 oz BMI 32.3 BP 140/64 H Blood Pressure Location Rt brachial Position Sitting Pulse 82 Pulse Oximetry (%) 93 Intake Visit Reasons: abscess on back of leg Intake Note: New patient in office today for abscess on the back of her leg. CC: Patient reports onset of small boil behind her left thigh years ago. She reports that it starting getting bigger and painful about a week ago. She also reports drainage from abscess. Telegraph Mechanic Required: No Accompanied by: Self / Same As Patient Allergies No Known Allergies Allergy (Verified 09/20/24 13:01) Medication List - Last Reconciled 09/20/24 by Jorge Armstrong MD aspirin 81 mg PO DAILY cephalexin 500 mg PO BID cholecalciferol (vitamin D3) 10 mcg PO DAILY fluticasone propionate 50 mcg/actuation (Flonase Allergy Relief) 1 spray intranasal DAILY omega 6-mvd-zka-fish oil 100-160-1,000 mg (Fish Oil) caps PO omeprazole 20 mg PO DAILY sertraline 50 mg PO DAILY sulfamethoxazole-trimethoprim 800-160 mg 1 tab PO BID HPI Comments Details: 74-year-old female patient presenting with a boil on the posterior left thigh. She reports a previous lump for many years at this location which suddenly with the past week began to swell and become more painful. The skin was noted to be red and subsequently this morning she began to have discharge from the site. She was started on antibiotics 2 days ago which she has been taking without any reaction. She denies any fever or chills. She denies any previous surgery at this location. [facility] Surgical History Hx of colonoscopy (04/2010) Family History Brother Cancer Brother Colon cancer Social History Alcohol intake: current Alcohol intake frequency: holidays/special occasions only Patient Tobacco Use Status: Never used Tobacco Review of Systems Const All systems reviewed & are unremarkable except as noted in HPI and below Denies chills, Denies fever(s), Denies headache(s), Denies poor appetite and Denies weakness ENT Denies headache(s) Card Denies chest pain, Denies irregular heart rhythm, Denies palpitations and Denies dyspnea Resp Denies cough, Denies excessive phlegm production and Denies dyspnea GI Denies abdominal pain, Denies bloating, Denies change in bowel habits, Denies constipation, Denies heartburn, Denies diarrhea, Denies nausea and Denies vomiting Denies urinary frequency Musc Denies back pain, Denies muscle weakness and Denies numbness Skin/Breast Reports changing lesions, Reports erythema and Denies unusual bruising Neuro Denies headache(s), Denies numbness, Denies paresthesias and Denies weakness Psych Denies anxiety and Denies depression Endo Denies palpitations Lc/Lymph Denies lymphadenopathy Physical Exam Vital Signs: Last Vital Signs Pulse 82 09/20/24 12:55 BP 140/64 H 09/20/24 12:55 Pulse Ox 93 09/20/24 12:55 BMI result Body Mass Index 32.3 Const General: cooperative and no acute distress Nutritional Appearance: well nourished Orientation/consciousness: patient oriented x3 Limitations: no limitations HEENT Head: Yes normocephalic and Yes atraumatic Ears: hearing grossly normal bilaterally Resp Effort & Inspection: normal respiratory effort, no audible wheezes, no cough and no respiratory distress Cardio Jugular venous distension: no JVD GI Inspection: Yes normal to inspection Back/Spine/Pelvis Back/spine/pelvis image: 1. 2 cm soft tissue mass with a central punctum suggestive of a sebaceous cyst of the midback. Skin Other: Warm, dry, no rash Neuro General: patient oriented x3 Extrem Other: Left posterior leg with an open wound wound draining purulent discharge and with erythema in the surrounding skin suggestive of an abscess possibly a sebaceous cyst abscess. The abscess appeared fluctuant therefore incision and drainage was recommended. General: Yes no clubbing, cyanosis or edema Knee images: 1. 2 cm red, tender, fluctuant abscess posterior left thigh Office Procedures I&D Drain Details: Preoperative diagnosis: Abscess posterior left thigh Postoperative diagnosis: Same Procedure: Incision abscess posterior left thigh Surgeon: Jorge Armstrong MD Technician Semiconductor Development: None Anesthesia: Lidocaine 1% with epinephrine Indications for procedure: 74-year-old female with a painful lump in the posterior left thigh Operative findings: Small abscess cavity posterior left thigh Specimen: None Estimated blood loss: 2 mL Complications: None Procedure details: Patient was placed in a left lateral decubitus position of the procedure table. The site of surgery was confirmed by the patient in the left posterior thigh. After assuring informed consent the skin was prepped with Betadine and draped in a sterile fashion. Local anesthesia was then infiltrated around the lesion. An incision was made with a 11 blade into the abscess cavity. A small purulence collection was drained. This was then irrigated with saline solution. The wound was then packed with quarter-inch Nu Gauze and covered with dry sterile dressings. The patient tolerated the procedure well was discharged to home in stable condition. 17240-Tsbcosvw of Skin Abscess, simple All charges added?: Procedure code (CPT) selection complete Assessment & Plan Assessment & Plan (1) Abscess of thigh: Comment: Left thigh I&D on 09/20/2024 Code(s): L02.419 - Cutaneous abscess of limb, unspecified Category: Medical Plan 74-year-old female patient presenting with an abscess of the left posterior thigh. This was incised and drained today in the office and packed with Nu Gauze. The patient was instructed on local wound care and will return in for possible excision of a sebaceous cyst of the back. Coding Level of Care Code New Pt Level 4 (77047) Diagnoses Abscess of thigh L02.419 CPT Codes I&D Drain - Drain 1: 43593-Ratvlroh of Skin Abscess, simple ([id number])
--- OUTSIDE RECORDS SUMMARY | 2024-09-20 16:14 | XMS_ITS ---
Author Organization [facility] Address [address] [place] [address] Care Team Providers Care Bridge Expert Name Role Phone Vik Herring MD Primary Care Provider Cesar Arauz Unavailable [phone] Allergies Allergen (clinical drug ingredient) Drug/Non Drug Allergy documented on EMR Reaction Allergy Type Onset Date Status Seasonal IC Unknown Drug Allergy Activ e REASON FOR VISIT Patient presents today for a colon screening/EGD Medications Medication SIG (Take, Route, Fr equency, Duration) Notes Start Date End Date Status Omeprazole 20 MG TAKE 1 CAPSULE BY [facility] DAILY Oral Active Valsartan 80 MG 1 tablet Orally Once a day for 30 day(s) Active Sertraline HCl 100 MG 1 tablet Orally Once a day Active Calcium 1200 1 tab Oral once a day Active Vitamin D 400 UNIT/ML 2 ml Orally Once a day Active Fish Oil 1200 MG 1 capsule Orally Once a day Active Immunizations Vaccine Route Administration Date Status Comme nts Influenza Unknown 07/12/2024 Refused Social History Tobacco Use: Social History Observation Description Date Details (start date - stop date) Never Smoker NA - NA Tobacco Use/Smoking Question [...] Never (0 point) Points 1 Interpretation Negative Section Notes: Nonsmoker; no sig alcohol Problems Problem Type SNOMED Code ICD Code Onset Dates Problem Status W/U Status Risk Notes Problem Gastroesophageal reflux disease (disorder) (039418504) Chronic GERD (K21.9) Active confirmed Problem Screening for malignant neoplasm of colon (763622965) Encounter for screening for malignant neoplasm of colon (Z12.11) Active confirmed Vital Signs Temperature 97.1 degrees Fahrenheit 07/12/19 25 Blood pressure systolic 000 mm Hg 07/12/19 25 Blood pressure diastolic 00 mm Hg 025 Height 64 in 07/12/2024 Weight 192 lb 2 oz lbs 07/12/2024 BMI 32.97 kg/m2 07/12/2024 Encounters Encounter Location Date Provider Diagnosis [facility] [address] [place] [address] 07/12/2024 Cesar Rosalio Other irritable bowel syndrome K58.8 ; Chronic GERD K21.9 ; Encounter for screening for malignant neoplasm of colon Z12.11 and Family history of colon cancer Z80.0 Assessments Encounter Date Diagnosis (ICD Code) Assessment Notes Treatment Notes Treatment Clinical Notes Section Notes 07/12/2024 Other irritable bowel syndrome (ICD-10 - K58.8) Overall, Regi appears quite well. Given her age, good clinical appearance, family history of colon cancer, and her last colonoscopy being in 2018, I did recommend a followup colonoscopy for further screening purposes. We Did review the rationale for that in regard to colon cancer prevention. Full consent was obtained for this, including risks of bleeding and perforation. The procedure will be done with monitored anesthesia care. She was given the below instructions regarding adjustment of her medication for the procedure. We did review her history of reflux but this seems to be quite stable at the present time. I don't think she requires an upper endoscopy at this time given her negative exam in the past and her clinical history. Her single episode of vomiting with a question of bleeding back in February, and without any recurrent symptoms, does not seem particularly worrisome. I did advise her to continue her omeprazole and to certainly let me know if anything changes with increasing symptoms of reflux, dysphagia, anorexia, or any recurrent signs of vomiting with bleeding. Her irritable bowel syndrome seems stable at the present time I don't think she needs any particular intervention in that regard. Regi was comfortable with this plan. Thank you again for allowing me to participate in Regi's care. I shall continue to keep you advised of her progress. 07/12/2024 Chronic GERD (ICD-10 - K21.9) Overall, Regi appears quite well. Given her age, good clinical appearance, family history of colon cancer, and her last colonoscopy being in 2018, I did recommend a followup colonoscopy for further screening purposes. We Did review the rationale for that in regard to colon cancer prevention. Full consent was obtained for this, including risks of bleeding and perforation. The procedure will be done with monitored anesthesia care. She was given the below instructions regarding adjustment of her medication for the procedure. We did review her history of reflux but this seems to be quite stable at the present time. I don't think she requires an upper endoscopy at this time given her negative exam in the past and her clinical history. Her single episode of vomiting with a question of bleeding back in February, and without any recurrent symptoms, does not seem particularly worrisome. I did advise her to continue her omeprazole and to certainly let me know if anything changes with increasing symptoms of reflux, dysphagia, anorexia, or any recurrent signs of vomiting with bleeding. Her irritable bowel syndrome seems stable at the present time I don't think she needs any particular intervention in that regard. Regi was comfortable with this plan. Thank you again for allowing me to participate in Regi's care. I shall continue to keep you advised of her progress. 07/12/2024 Encounter for screening for malignant neoplasm of colon (ICD-10 - Z12.11) Stop fish oil for 1 week before the colonoscopy Overall, Regi appears quite well. Given her age, good clinical appearance, family history of colon cancer, and her last colonoscopy being in 2018, I did recommend a followup colonoscopy for further screening purposes. We Did review the rationale for that in regard to colon cancer prevention. Full consent was obtained for this, including risks of bleeding and perforation. The procedure will be done with monitored anesthesia care. She was given the below instructions regarding adjustment of her medication for the procedure. We did review her history of reflux but this seems to be quite stable at the present time. I don't think she requires an upper endoscopy at this time given her negative exam in the past and her clinical history. Her single episode of vomiting with a question of bleeding back in February, and without any recurrent symptoms, does not seem particularly worrisome. I did advise her to continue her omeprazole and to certainly let me know if anything changes with increasing symptoms of reflux, dysphagia, anorexia, or any recurrent signs of vomiting with bleeding. Her irritable bowel syndrome seems stable at the present time I don't think she needs any particular intervention in that regard. Regi was comfortable with this plan. Thank you again for allowing me to participate in Regi's care. I shall continue to keep you advised of her progress. 07/12/2024 Family history of colon cancer (ICD-10 - Z80.0) Overall, Regi appears quite well. Given her age, good clinical appearance, family history of colon cancer, and her last colonoscopy being in 2018, I did recommend a followup colonoscopy for further screening purposes. We Did review the rationale for that in regard to colon cancer prevention. Full consent was obtained for this, including risks of bleeding and perforation. The procedure will be done with monitored anesthesia care. She was given the below instructions regarding adjustment of her medication for the procedure. We did review her history of reflux but this seems to be quite stable at the present time. I don't think she requires an upper endoscopy at this time given her negative exam in the past and her clinical history. Her single episode of vomiting with a question of bleeding back in February, and without any recurrent symptoms, does not seem particularly worrisome. I did advise her to continue her omeprazole and to certainly let me know if anything changes with increasing symptoms of reflux, dysphagia, anorexia, or any recurrent signs of vomiting with bleeding. Her irritable bowel syndrome seems stable at the present time I don't think she needs any particular intervention in that regard. Regi was comfortable with this plan. Thank you again for allowing me to participate in Regi's care. I shall continue to keep you advised of her progress. Plan Of Treatment Medication Medication Name Sig Start Date Stop Date Notes Omeprazole 20 MG TAKE 1 CAPSULE BY MOUTH DAILY Oral Treatment Notes Assessment Notes Encounter for screening for malignant neoplasm of colon Stop fish oil for 1 week before the colonoscopy Future Test Test Name Order Date COLONOSCOPY 07/12/2024 Next Appt Details Follow Up: prn, Reason: Provider Name:Cesar Santamaria , 10/17/2024 10:30:00 AM, [address] [place] [address] , [place], [place], [id number], Progress Notes * REGI WARNER ADOB:[birth year] (74 yo F)Acc No.[id number]:07/12/2024 Progress Notes Patient:REGI EDMONDS Provider:?Cesar Santamaria MD :1950???Age:74 Y???Sex:Female D ate:07/12/2024 Address:[address] [place] [address] , [place] , [id number] Pcp:Vik Herring MD Subjective: * Chief Complaints: * ???Patient presents today fo r a colon screening/EGD * HPI: ???incontinence:? I saw Regi in followup today in regard to her underlying history of gastroesophageal reflux, irritable bowel syndrome, family history of colon cancer, and discussion of colorectal cancer screening. ?I last saw Regi in November of 2021, at which time we reviewed her history of irritable bowel syndrome. She subsequently did a negative Cologuard test through your office the following month. Her last colonoscopy in 2017 was negative for any polyps, as were her other 3 colonoscopies prior to that. Therefore, I did not think she need a colonoscopy in 2021. She does have a family history of colon cancer in her brother but he was in his 70s at that time. ?She currently feels well. Her bowel movements remain slightly irregular in relation to the chronic irritable bowel syndrome but she describes at least one daily bowel movement. She denies any significant periods of constipation or diarrhea. She denies any signs of bleeding. She denies abdominal pain, jaundice, nor unintentional weight loss. ?She does remain on daily omeprazole with good relief of reflux symptoms. She denies any significant heartburn, dysphagia, anorexia, early satiety, nor significant nausea or vomiting. She does describe a single episode of vomiting last February with some red material in the vomitus. However, she did have some red wine prior to that. She has not had anything similar to that since that one episode back in February. * ROS:?General/Constitutional:?Change in appetite?denies.?Chills?denies.?Fatigue?denies.?Ophthalmologic:?Comments?all negative.?ENT:?Comments?all negative.?Respiratory:?hemoptysis?denies.?Cough?denies.?Cardiovascular:?Chest pain?denies.?Orthopnea?denies.?Gastrointestinal:?Comments?See HPI for details.?Genitourinary:?Hematuria?denies.?Dysuria?denies.?Musculoskeletal:?Painful joints?denies.?Weakness?denies.?Skin:?Itching?denies.?Rash?denies.?Neurologic:?Headache?denies.?Seizures?denies.?Psychiatric:?Comments?all negative.? * Medical History:? * Surgical History:?No Surgica l History documented. * Hospitalization/Major Diagno stic Procedure:?No Hospitalization History. * Family History:?Father: dece ased, stroke, diagnosed with HTN (hypertension), Heart disease.?Mother: , hemochromatosis.? Colon cancer in her brother in his late 70's. No family history of liver cancer. * Social History:?Tobacco Use:?Tobacco Use/Smoking?Patient is a?nonsmoker.?Drugs/Alcohol:?Alcohol Screen?Did you have a drink containing alcohol in the past year??Yes,?How often did you have a drink containing alcohol in the past year??Monthly or less (1 point), How many drinks did you have on a typical day when you were drinking in the past year??1 or 2 drinks (0 point),?How often did you have 6 or more drinks on one occasion in the past year??Never (0 point),?Points?1,?Interpretation?Negative.?Miscellaneous:?Marital status: . Occupation: retired. ???Nonsmoker; no sig alcohol. * Medications:?TakingValsartan 80 MG Tablet 1 tablet Orally Once a dayOmeprazole 20 MG Capsule Delayed Release TAKE 1 CAPSULE BY MOUTH DAILY Oral Sertraline HCl 100 MG Tablet 1 tablet Orally Once a dayCalcium 1200 1 tab Oral once a dayVitamin D 400 UNIT/ML Liquid 2 ml Orally Once a dayFish Oil 1200 MG Capsule 1 capsule Orally Once a dayTaking Valsartan 80 MG Tablet 1 tablet Orally Once a dayTaking Omeprazole 20 MG Capsule Delayed Release TAKE 1 CAPSULE BY MOUTH DAILY Oral Taking Sertraline HCl 100 MG Tablet 1 tablet Orally Once a dayTaking Calcium 1200 1 tab Oral once a dayTaking Vitamin D 400 UNIT/ML Liquid 2 ml Orally Once a dayTaking Fish Oil 1200 MG Capsule 1 capsule Orally Once a dayDiscontinuedpredniSONE 2 MG Tablet Delayed Release 1 tablet Orally Once a dayMedication List reviewed and reconciled with the patientDiscontinued predniSONE 2 MG Tablet Delayed Release 1 tablet Orally Once a dayMedication List reviewed and reconciled with the patient * Allergies:?Seasonal ICyes[Karl alfaro Verified] Objective: * Vitals:?Wt: 192 lb 2 oz, Ht: 64 in, BMI:32.97 Index, BP: 000/00 mm Hg, Temp: 97.1. * Examination: ???General Examination: ?GENERAL APPEARANCE:?pleasant, well nourished, well developed, in no acute distress.?EYES:?sclera non-icteric.?ORAL CAVITY:?mucosa moist.?NECK/THYROID:?no cervical lymphadenopathy, neck supple.?SKIN:?nonjaundiced, no spider angiomata.?HEART:?S1, S2 normal.?LUNGS:?clear to auscultation bilaterally.?ABDOMEN:?normal bowel sounds, no guarding or rigidity, no guarding or rigidity, no masses palpable, soft, nontender, nondistended.?EXTREMITIES:?no edema.?NEUROLOGIC:?alert and oriented.? Assessment: * Assessment: 1.?Chronic GERD - K21.9 (Carmina connelly)?2.?Other irritable bowel syndrome - K58.8?3.?Encounter for screening for malignant neoplasm of colon - Z12.11?4.?Family history of colon cancer - Z80.0? Overall, Regi appears jerry te well. Given her age, good clinical appearance, family history of colon cancer, and her last colonoscopy being in 2018, I did recommend a followup colonoscopy for further screening purposes. We Did review the rationale for that in regard to colon cancer prevention. Full consent was obtained for this, including risks of bleeding and perforation. The procedure will be done with monitored anesthesia care. She was given the below instructions regarding adjustment of her medication for the procedure. We did review her history of reflux but this seems to be quite stable at the present time. I don't think she requires an upper endoscopy at this time given her negative exam in the past and her clinical history. Her single episode of vomiting with a question of bleeding back in February, and without any recurrent symptoms, does not seem particularly worrisome. I did advise her to continue her omeprazole and to certainly let me know if anything changes with increasing symptoms of reflux, dysphagia, anorexia, or any recurrent signs of vomiting with bleeding. Her irritable bowel syndrome seems stable at the present time I don't think she needs any particular intervention in that regard. Regi was comfortable with this plan. Thank you again for allowing me to participate in Regi's care. I shall continue to keep you advised of her progress. Plan: * Treatment: Notes: Stop fish oil for 1 week before the colonoscopy??2.?Family history of colon cancer?Procedure: COLONOSCOPY (Ordered for 07/12/2024)* with MACsched for 10/17/24 at 10:30 ammiralax 3.?Others? Continue Omeprazole Capsule Delayed Release, 20 MG, TAKE 1 CAPSULE BY MOUTH DAILY, Oral.?? * Immunizations:? Influenza (Not administered - Refused: Patient decision) * Procedure Codes:?3017F COLOR ECTAL CA SCREEN DOC [id number] TOBACCO [id number] BP SCR NOT PRFRM REC REASON NOS * Preventive Medicine:? ??Counseling:?Care goal follow-up plan:?Above Normal BMI Follow-up?Giving encouragement to exercise,?BMI management provided?Yes.? ??Urinary Incontinence:?Urinary Incontinence?Assessment:?Absent,?Plan of care documented:?No, reason not specified.? ??Screenings:?Fall Risk Screening?Fall Risk Assessment:?No falls in the past year,?Screening:?No falls in the past year,?Assessment:?Not performed, no reason specified,?Plan of Care:?Not documented, no reason specified.? * Follow Up:?prn * * Sign off status: Completed true * Provider:?Cesar Santamaria MD Date:? 025 Generated for Angella wang/Selena/Deo on:?09/20/2024 04:14 PM EDT History and Physical Notes * HPI (History of Present Illness) Category Sub-Category Detail Notes Category Not es incontinence I saw Regi in followup today in regard to her underlying history of gastroesophageal reflux, irritable bowel syndrome, family history of colon cancer, and discussion of colorectal cancer screening. I last saw Regi in November of 2021, at which time we reviewed her history of irritable bowel syndrome. She subsequently did a negative Cologuard test through your office the following month. Her last colonoscopy in 2017 was negative for any polyps, as were her other 3 colonoscopies prior to that. Therefore, I did not think she need a colonoscopy in 2021. She does have a family history of colon cancer in her brother but he was in his 70s at that time. She currently feels well. Her bowel movements remain slightly irregular in relation to the chronic irritable bowel syndrome but she describes at least one daily bowel movement. She denies any significant periods of constipation or diarrhea. She denies any signs of bleeding. She denies abdominal pain, jaundice, nor unintentional weight loss. She does remain on daily omeprazole with good relief of reflux symptoms. She denies any significant heartburn, dysphagia, anorexia, early satiety, nor significant nausea or vomiting. She does describe a single episode of vomiting last February with some red material in the vomitus. However, she did have some red wine prior to that. She has not had anything similar to that since that one episode back in February. Examination Category Sub-Category Detail Notes Category Not es General Examination GENERAL APPEARANCE: pleasant , well [...]
--- OUTSIDE RECORDS SUMMARY | 2024-09-20 16:14 | XMS_ITS | Patient Health Record ---
Author Organization [facility] Address [address] [place] [address] Care Team Providers Care Financial Developer Name Role Phone Vik Herring MD Primary Care Provider Cesar Arauz Unavailable [phone] Allergies Allergen (clinical drug ingredient) Drug/Non Drug Allergy documented on EMR Reaction Allergy Type Onset Date Status Seasonal IC Unknown Drug Allergy Activ e Reason For Referral No Information Medications Medication SIG (Take, Route, Fr equency, Duration) Notes Start Date End Date Status Omeprazole 20 MG TAKE 1 CAPSULE BY [facility] DAILY Oral Active Valsartan 80 MG 1 [...] Unknown 03/11/2021 Administered Influenza Unknown 07/12/2024 Refused Social History Tobacco [...] Negative Section Notes: Nonsmoker; no sig alcohol Nonsmoker; no sig alcohol Nonsmoker; no sig alcohol Problems Problem Type SNOMED Code ICD Code Onset Dates Problem Status W/U Status Risk Notes Problem Screening for malignant neoplasm of colon (720357391) Encounter for screening for malignant neoplasm of colon (Z12.11) Active confirmed Problem 637108116 Change in bowel habits (R19.4) Active confirmed Problem 81431845 Blood in stool (K92.1) Active confirmed Problem 086105708 Family history of colon cancer (Z80.0) Active confirmed Problem 88997650 Other irritable bowel syndrome (K58.8) Active confirmed Problem Gastroesophageal reflux disease (disorder) (267260157) Chronic GERD (K21.9) Active confirmed Vital Signs Temperature 97.1 degrees Fahrenheit 07/12/2024 Blood pressure diastolic 00 mm Hg 07/12/2024 Height 64 in 07/12/2024 Blood pressure systolic 000 mm Hg 07/12/2024 Weight 192 lb 2 oz lbs 07/12/2024 BMI 32.97 kg/m2 07/12/2024 Encounters Encounter Location Date Provider Diagnosis [facility] [address] [place] [address] 07/12/2024 Cesar Santamaria Other irritable bowel syndrome [...] cancer, and her last colonoscopy being in 2017, I did recommend a followup colonoscopy for [...] advised of her progress. Plan Of Treatment Future Test Test Name Order Date COLONOSCOPY 06/07/2017 COLONOSCOPY 07/12/2024 Next Appt Details Provider Name:Cesar Santamaria , 10/17/2024 10:30:00 AM, [address] [facility] , [place], [place], [phone], Insurance Providers Payer Name Payer Address Payer Phone Subscriber Number Group Number Insured Name Patient Relationship to Insured Coverage Start Date Coverage End Date MEDICARE OF [place] [address] [place] [address] [id number] REGI WARNER Self - patient is the insured [employer] ATT[employer] CLAIMS [address] [place] [phone] [id number] REGI WARNER Self - patient is the insured Medical (General) History Medical History History ICD Code Denies MT,DM,CVA,Lung disease,renal dise ase Urinary incontinence-mild GERD--EGD in 2004--small hia josé antonio hernia--no esophagitis nor Gee's esophagus Anxiety/depression--mild Hematuria--having a cystoscopy in 7 negative colonoscopies in , 2004, 2009, and 07/2017--- sigmoid diverticulosis and internal hemorrhoids Arthritis Hypertension Polymyalgia rheumatica Surgical History Surgery Date(Month/Year)
--- OUTSIDE RECORDS SUMMARY | 2024-09-20 16:14 | XMS_ITS ---
Author Organization Vik Herring MD Address [address] [place] [phone] Care Team Providers Care Insurance Assistant Name Role Phone NimaReynan Primary Care Provider Allergies No Known Allergies Reason For Referral Reason ABSCESS Diagnosis 1 Abscess (L02.91) Referral Organization Vik Herring MD Referring Provider First Name Vik Referring Provider Last Name Nima Referring Provider Speciality Internal M edicine Referred Provider Jorge Armstrong Referred Provider Specialty Surgery General Notes Veronica Hernandez 09/18/2024 01:13:25 PM >APPT SCHEDULED WITH DR ARMSTRONG FOR 09/20/24 AT 1PM, PATIENT AWARE.REFERRAL [place] BE [facility] [place] [facility] Referral Priority Routine Referral Appointment Date 09/20/2024 REASON FOR VISIT left leg infected pimple x 5 days 010--0760 video, Changed from Telehealth patient coming into the office. Medications Medication SIG (Take, Route, Frequency, Duration) Notes Start Date End Date Status Sulfamethoxazole-Trimetho prim 800-160 MG 1 tablet Orally twice a day for 10 days 09/18/2024 Active ZyrTEC Allergy 10 MG 1 tablet Orally Onc e a day Not-Taking Ibuprofen 800 MG 1 tablet with food o r milk as needed Orally Three times a day for 30 days 02/06/2019 Not-Taking Tylenol Extra Strength 500 MG 1 tablet as needed Orally every 6 hrs Not-Taking Fluticasone Propionate 0.050 Milligram 2 sprays each nostril daily Nasally Once a day for 30 Not-Taking buPROPion HCl ER (XL) 150 MG 1 tablet in the morning Orally Once a day for 30 days 08/30/2024 Active Sertraline HCl 100 MG TAKE ONE TABLET BY MOUTH EVERY DAY for 90 Active Valsartan 80 MG TAKE ONE TABLET BY MOUTH EVERY DAY for 90 Active Omeprazole 20 MG ONE DAILY Act poncho Fish Oil 500 MG 1 capsule Orally Onc e a day Active Nasacort Allergy 24HR 55 MCG/ACT 1 spray in each nostril Nasally Once a day Active Caltrate 600+D 600-400 MG-UNIT 1 tablet with food Orally Once a day Active Cephalexin 500 MG 1 capsule Orally 4 times per day for 10 days 09/18/2024 Active Vital Signs Blood pressure systolic 118 mm Hg 09/19/19 25 Blood pressure diastolic 84 mm Hg 025 Height 64 in 09/18/2024 Weight 190 lbs 09/18/2024 BMI 32.61 kg/m2 09/18/2024 weight is 190 BP not taken a t home no temp Encounters Encounter Location Date Provider Diagnosis Vik Herring MD [address] [place] [address] [place] [phone] 09/18/2024 Vik Herring Abscess L02.91 Assessments Encounter Date Diagnosis (ICD Code) Assessment Notes Treatment Notes Treatment Clinical Notes Section Notes 09/18/2024 Abscess (ICD-10 - L02.91) Plan Of Treatment Medication Medication Name Sig Start Date Stop Date Notes Sulfamethoxazole-Trimethopri m 800-160 MG 1 tablet Orally twice a day for 10 days 09/18/2024 Cephalexin 500 MG 1 capsule Orally 4 t imes per day for 10 days 09/18/2024 Referrals Referral Date Details 09/18/2024 09/18/2024, ABSCESS, Jorge Armstrong Next Appt Details Provider Name:Vik ashley, 11/13/2024 10:15:00 AM, [address] [place] [address], [address], [place], [phone], Provider Name:Vik Snell ier, 08/27/2025 08:00:00 AM, [address] [facility], [address], [place], [phone], Provider Name:Vik Snell ier, 09/03/2025 02:30:00 PM, [address] [facility], [address], [place], [phone], Progress Notes * WARNER, Regi ADOB:[birth year] (74 yo F)Acc No.[id number]:09/18/2024 Progress Notes Patient:?Blanca WARNERh A Provider:?Vik Herring MD :1950???Age:74 Y???Sex:Female D ate:09/18/2024 Address:[address] [place] [address] , [id number] Subjective: * Chief Complaints: * ???Left leg infected pimple x 5 days 113--8513 videoChanged from Telehealth patient coming into the office. * HPI: ???Symptom(s):?Telehealth?Total time spend talking with patient (minutes)?0.?Patient is a 74 yo female here for evaluation?has a pimple on back of leg. has gotten bright red and it is killing her/ started out like an ingrown hair size of pea 2 years ago. started to get painful last week. * ROS:?General/Constitutional:?Denies?Chills.?Denies?Fatigue.?Denies?Fever.?Denies?Headache.?ENT:?Patient denies?decreased sense of smell, any loss of taste, sore throat.?Denies?Sore throat.?Respiratory:?Denies?Cough.?Denies?Shortness of breath at rest.?Denies?Shortness of breath with exertion.?Gastrointestinal:?Denies?Diarrhea.?Denies?Nausea.?Musculoskeletal:?Patient denies?muscle aches.?Peripheral Vascular:?Patient denies?red and blue toes.? * Medical History:? * Surgical History:? * Hospitalization/Major Diagno stic Procedure:? * Medications:?TakingCaltrate 600+D 600-400 MG-UNIT Tablet 1 tablet with food Orally Once a day Nasacort Allergy 24HR 55 MCG/ACT Aerosol 1 spray in each nostril Nasally Once a day Fish Oil 500 MG Capsule 1 capsule Orally Once a day Omeprazole 20 MG Capsule Delayed Release ONE DAILY Valsartan 80 MG Tablet TAKE ONE TABLET BY MOUTH EVERY DAY Sertraline HCl 100 MG Tablet TAKE ONE TABLET BY MOUTH EVERY DAY buPROPion HCl ER (XL) 150 MG Tablet Extended Release 24 Hour 1 tablet in the morning Orally Once a day Taking Caltrate 600+D 600-400 MG-UNIT Tablet 1 tablet with food Orally Once a day Taking Nasacort Allergy 24HR 55 MCG/ACT Aerosol 1 spray in each nostril Nasally Once a day Taking Fish Oil 500 MG Capsule 1 capsule Orally Once a day Taking Omeprazole 20 MG Capsule Delayed Release ONE DAILY Taking Valsartan 80 MG Tablet TAKE ONE TABLET BY MOUTH EVERY DAY Taking Sertraline HCl 100 MG Tablet TAKE ONE TABLET BY MOUTH EVERY DAY Taking buPROPion HCl ER (XL) 150 MG Tablet Extended Release 24 Hour 1 tablet in the morning Orally Once a day Not-Taking/PRNTylenol Extra Strength 500 MG Tablet 1 tablet as needed Orally every 6 hrs Ibuprofen 800 MG Tablet 1 tablet with food or milk as needed Orally Three times a day ZyrTEC Allergy 10 MG Tablet 1 tablet Orally Once a day Fluticasone Propionate 0.050 Milligram Suspension 2 sprays each nostril daily Nasally Once a day Medication List reviewed and reconciled with the patientNot-Taking/PRN Tylenol Extra Strength 500 MG Tablet 1 tablet as needed Orally every 6 hrs Not-Taking/PRN Ibuprofen 800 MG Tablet 1 tablet with food or milk as needed Orally Three times a day Not-Taking/PRN ZyrTEC Allergy 10 MG Tablet 1 tablet Orally Once a day Not-Taking/PRN Fluticasone Propionate 0.050 Milligram Suspension 2 sprays each nostril daily Nasally Once a day Medication List reviewed and reconciled with the patient * Allergies:?N.K.D.A.yes[Aller gies Verified] Objective: * Vitals:?Ht: 64, Wt: 190, BMI :32.61, BP:118/84, Wt-k.18. weight is 190? BP? ?not taken at home? no temp. * Examination: ???General Examination: ?GENERAL APPEARANCE:?alert, well hydrated, in no distress.?SKIN:?abnormal with a 3 inch abscess on back of thigh.? Assessment: * Assessment: 1.?Abscess - L02.91 (Primary )??? Plan: * Treatment: * Procedure Codes:? * * Sign off status: Completed true * Provider:?Vik Herring MD Date:?0 09/18/2024 Generated for Angella wang/Selena/eTransmitting on:?09/20/2024 04:14 PM EDT History and Physical Notes * HPI (History of Present Illness) Category Sub-Category Detail Notes Category Not es Symptom(s) Telehealth Total time spend talking with patient (minutes): 0 Patient is a 74 yo female here for evaluation has a pimple on back of leg. has gotten bright red and it is killing her/ started out like an ingrown hair size of pea 2 years ago. started to get painful last week. Examination Category Sub-Category Detail Notes Category Not es General Examination GENERAL APPEARANCE: alert, w ell hydrated, in no distress SKIN: abnormal with a 3 in ch abscess on back of thigh Consultation Request Notes Referral Date Referring Provider Referred Provider Not es 09/18/2024 Vik Herring John ABSCESS
--- OUTSIDE RECORDS SUMMARY | 2024-09-20 16:14 | XMS_ITS ---
Author Organization Vik Herring MD Address [address] [place], [place] [phone] Care Team Providers Care Correctional Supervisor Lieutenant Name Role Phone Nima Vik Primary Care Provider [phone] Results Component Value Reference Range Notes Complete Blood Count Auto Di ff Reviewed date:08/24/2024 12:46:19 PM Interpretation: Performing Lab:[facility], [address] [place] [phone] Notes/Report: White Blood Count 7.8 4.8-10.8 X10*3/uL [...] Location Date Provider Diagnosis Vik Herring MD [address] [place] [address] [place] [phone] 08/24/2024 Vik Herring Labile hypertension I10 and Hypercholesterolemia E78.00 Assessments Encounter Date Diagnosis (ICD Code) Assessment Notes Treatment Notes Treatment Clinical Notes Section Notes 08/24/2024 Labile hypertension (ICD-10 - I10) 08/24/2024 Hypercholesterolemia (ICD-10 - E78.00) Plan Of Treatment Pending Test Test Name Order Date Comprehensive [place]. Panel Fast Lipid Panel 08/24/2024 UA ClnCatch+Micro w/rflx Cult 08/24/2024 Next Appt Details Provider Name:Vik ashlye, 11/13/2024 10:15:00 AM, [address] [place] [address], [place] [address], [place], [place], [phone], Provider Name:Vik ashley, 08/27/2025 08:00:00 AM, [address] [place] [address], [address], [place], [place], [phone], Provider Name:Vik ashley, 09/03/2025 02:30:00 PM, [address] [facility], [address], [place], [place], [phone], Progress Notes * Regi WARNER ADOB:[birth year] (74 yo F)Acc No.[id number]:08/24/2024 Progress Note Patient:?Regi WARNER Provider:?Vik Herring MD :1950???Age:74 Y???Sex:Female D ate:08/24/2024 Address:[address] [place] [address] [id number] Subjective: * Chief Complaints: * ???1. Yearly fasting labs. * Medical History:? Objective: * Vitals:? Assessment: * Assessment: 1.?Labile hypertension - I10 (Primary)???2.?Hypercholesterolemia - E78.00??? Plan: * Treatment: 2.?Hypercholesterolemia?LAB: Comprehensive [place]. Panel Fast ?LAB: Lipid Panel ?LAB: UA ClnCatch+Micro w/rflx Cult ?LAB: Complete Blood Count Auto Diff (Collection Date & Time - 08/24/2024 07:15 AM) * Procedure Codes:?43666 VENIP UNCT, ROUTINE* * * The named appointment provid er may or may not be the originator of this progress note, and it is not deemed complete until electronically signed by the appointment provider. Sign off status: Pending * Provider:?Vik Herring MD Date:?0 08/24/2024 Generated for Angella wang/Selena/eTransmitting on:?09/20/2024 04:13 PM EDT
--- OUTSIDE RECORDS SUMMARY | 2024-09-20 16:15 | XMS_ITS ---
Author Organization Vik Herring MD Address [address] [place] [phone] Care Team Providers Care Record Systems Analyst Name Role Phone Nima Vik Primary Care Provider Allergies No Known Allergies Results Component Value Reference Range Notes UA ClnCatch+Micro w/rflx Cul t Reviewed date:08/30/2024 05:02:13 PM Interpretation: Performing Lab:[facility], [address] [place] [phone] Notes/Report: Urine, Clean Catch Color Urine Yellow Appearance Urine Clear PH 5.5 5.0-9.0 Glucose Urine UA Negative Negative mg/dL Urine Blood Negative Negative Specific [place] - Urine >= 1.030 1.005-1.025 Urine Protein [...] Location Date Provider Diagnosis Vik Herring MD [address] [place] [address] [address] [place], [place] [phone] 08/30/2024 Vik Herring History of hematuria Z87.448 ; Depression F32.9 ; Skin cyst L72.[address] R68.82 Assessments Encounter Date Diagnosis (ICD Code) Assessment Notes Treatment Notes Treatment Clinical Notes Section Notes 08/30/2024 History of hematuria (ICD-10 - Z87.448) has been evaluated in past 08/30/2024 Depression (ICD-10 - F32.9) doing well on meds. 08/30/2024 Skin cyst (ICD-10 - L72.9) 08/30/[address] (ICD-10 - R68.82) [...] sex drive maybe related to the antidepressants Next Appt Details Follow Up: 2 Months, Reason: Provider Name:Vik ashley, 11/13/2024 10:15:00 AM, [address] [place] [address], [address], [phone], Provider Name:Vik ashley, 08/27/2025 08:00:00 AM, [address] [place] [address], [place] [address], [place], [place], [phone], Provider Name:Vik ashley, 09/03/2025 02:30:00 PM, [address] [place] [address], [address], [phone], Progress Notes * Regi WARNER ADOB:[birth year] (74 yo F)Acc No.[id number]:08/30/2024 Patient:?WARNER, Regi A Provider:?Vik Herring MD :1950???Age:74 Y???Sex:Female D ate:08/30/2024 [facility] [address] [id number] Subjective: * Chief Complaints: * ???Comp visit * HPI: ???Depression Screening:?PHQ-9?Little interest or pleasure [...] yourself in some way?Not at all,?Total Score?0.? pt is a 74 yo female here today for 6 month follow up of chronic illnesses. ???Communication Needs:?Communication Needs?Does the patient have a [...] of?concerned about diminished sex drive.? * Medical History:? * Surgical History:? * Hospitalization/Major Diagno stic Procedure:? * Family History:?Father: dece ased 68 yrs, [...] . Pets: none. Travel outside of the [place]: no. * Medications:?TakingCaltrate 600+D 600-400 MG-UNIT Tablet 1 [...] TAKE ONE TABLET BY MOUTH EVERY DAY Not-Taking/PRNTylenol Extra Strength 500 MG Tablet 1 [...] Tablet 1 tablet Orally Once a day Not- Taking/PRN Fluticasone Propionate 0.050 Milligram Suspension 2 sprays [...] no masses palpable.?RECTAL EXAM:?not done.?FEMALE GENITOURINARY:?done by security guard dispatcher.?EXTREMITIES:?no clubbing, cyanosis, or edema.?NEUROLOGIC:?nonfocal, motor strength normal upper and lower extremities, sensory exam intact.? Assessment: * Assessment: 1.?History of hematuria - Z8 7.448 (Primary)???2.?Depression - F32.9???3.?Skin cyst - L72.9???4.?Decreased sex drive - R68.82??? Plan: * Treatment: 2.?Depression? Start buPROPion HCl ER (XL) Tablet Extended Release 24 Hour, 150 MG, 1 tablet in the morning, Orally, Once a day, 30 days, 30, Refills 3.?? Notes: doing well on meds.?? 3.?Decreased sex drive? Notes: maybe related to the antidepressants?? * Procedure Codes:? * Follow Up:?2 Months * * Sign off status: Completed true * Provider:?Vik Herring MD Date:?0 08/30/2024 Generated for Angella wang/Selena/Nachoitting on:?09/20/2024 04:14 PM EDT History and Physical Notes * HPI (History of Present Illness) Category Sub-Category Detail Notes Category Not es Depression Screening PHQ-9 Little inte rest or pleasure in doing things: Not at all pt is a 74 yo female here today for 6 month follow up of chronic illnesses Feeling down, depressed, or hopeless: No t [...] EXAM: not done FEMALE GENITOURINARY: done by security guard dispatcher ORAL CAVITY: mucosa moist
== END 2024-09-20 13:32 | disposition home or self-care (01) ==
LOC: HO.HGS 12:54
PROVIDERS: PCP Internal Medicine; Visit Provider Surgery
DX: L02.416 Cutaneous abscess of left lower limb (principal)
CPT/HCPCS: 10060; 99204

== ENCOUNTER → 2024-09-20 12:53 | Outpatient (BNVA) | payer MEDICARE, SELFPAY | PROVIDERS: PCP Internal Medicine; Visit Provider Surgery | DX: L02.416 Cutaneous abscess of left lower limb (principal); R22.2 Localized swelling, mass and lump, trunk | CPT/HCPCS: 10060; 99202 ==

== ENCOUNTER 2024-10-04 10:46 | Outpatient (AMB) | payer MEDICARE, SELFPAY ==
--- NOTE | 2024-10-04 10:47 | A.OFFVIS_ITS ---
Vital Signs 3 10/04/24 10:48 Height 5 ft 4 in Weight 187 lb 6.287 oz BMI 32.2 Intake Visit Reasons: excision abscess on back of leg Intake Note: Patient is seen for office procedure, excision of a sebaceous cyst of the back. Pt c/o: here for removal of cyst * Needs s/p * Specialized Language Instructor Required: No Accompanied by: Self / Same As Patient Allergies No Known Allergies Allergy (Verified 10/04/24 10:48) HPI Comments Details: Patient returns today for excision of a large sebaceous cyst of the upper midback. She feels well and denies any ongoing pain. [facility] Surgical History Hx of colonoscopy (04/2010) Family History Brother Cancer Brother Colon cancer Social History Alcohol intake: current Alcohol intake frequency: holidays/special occasions only Patient Tobacco Use Status: Never used Tobacco Physical Exam Vital Signs: BMI result Body Mass Index 32.2 Back/Spine/Pelvis Back/spine/pelvis image: 2 1. 4 cm epidermal inclusion cyst (sebaceous cyst) of the upper midback Office Procedures Excision Details: Preoperative diagnosis: Epidermal inclusion cyst upper midback Postoperative diagnosis: Same Procedure: Excision of epidermal inclusion cyst upper midback Surgeon: Jorge Armstrong MD Finishing Powder Press Operator: None Anesthesia: Lidocaine 1% with epinephrine Indications for procedure: 74-year-old female patient presenting with a large epidermal inclusion cyst of the back as noted above. There is no evidence of infection at this time. Operative findings: 4 cm epidermal inclusion cyst upper midback Specimen: Epidermal inclusion cyst Estimated blood loss: 5 mL Complications: None Procedure details: Patient was brought to the procedure room and placed in a prone position. The site of surgery was confirmed by the patient in the upper midback. After assuring informed consent, the skin was prepped with Betadine and draped in a sterile fashion. Local anesthesia was then infiltrated around the lesion. A transverse elliptical incision was then created with a scalpel and carried out through subcutaneous tissue. Dissection was continued around the wall of the cyst and the cyst excised from the surrounding subcutaneous tissue. Hemostasis was assured using suture LigaSure of 3-0 Polysorb. The lesion was completely excised and sent to pathology for further examination. Dermis was then reapproximated using interrupted 3-0 Polysorb sutures. Skin was closed using interrupted 3-0 nylon sutures. Sterile dressings consisting of 3 x 3 gauze and Tegaderm were then applied. The patient tolerated the procedure well. She was discharged to home in stable condition. 28209-xljwj/arms/legs 3.1-4cm Procedure code (CPT) selection complete Assessment & Plan Assessment & Plan (1) Epidermal inclusion cyst: Code(s): L72.0 - Epidermal cyst Category: Medical Plan 74-year-old female patient returning today for excision of an epidermal inclusion cyst of the upper midback. She tolerated the procedure well and will return in 1 week for suture removal. Coding Level of Care Code Procedure Only Diagnoses Epidermal inclusion cyst L72.0 CPT Codes Trunk/Arms/Legs - CPT: 75651-sdfpd/arms/legs 3.1-4cm ([id number])
[2024-10-04 10:48] VITALS: BMI 32.2
== END 2024-10-04 11:25 | disposition home or self-care (01) ==
LOC: HO.HGS 10:47
PROVIDERS: PCP Internal Medicine; Visit Provider Surgery
DX: L72.0 Epidermal cyst (principal)
CPT/HCPCS: 11406

== ENCOUNTER 2024-10-04 10:46 | Outpatient (REF) | payer MEDICARE, SELFPAY | END 2024-10-04 10:47 | disposition home or self-care (01) | LOC: HO.LAB 10:46 | PROVIDERS: PCP Internal Medicine; Visit Provider Surgery | DX: L72.0 Epidermal cyst (principal) | CPT/HCPCS: 11406; 88304 ==

== ENCOUNTER 2024-10-11 13:01 | Outpatient (AMB) | payer MEDICARE, SELFPAY ==
--- NOTE | 2024-10-11 13:12 | MHC.OFFVIS ---
Vital Signs 10/11/24 13:16 Height 5 ft 4 in Weight 187 lb BMI 32.1 BP 136/68 Blood Pressure Location Lt brachial Position Sitting Pulse 84 Intake Visit Reasons: s/p Suture removal Intake Note: Patient is seen for one week follow up visit, post excision of a sebaceous cyst of the back. Pt c/o: denies any concerns, healing as expected, sutures removed at visit Gardening Manager Required: No Accompanied by: Self / Same As Patient Allergies No Known Allergies Allergy (Verified 10/11/24 13:18) Medication List - Last Reconciled 10/11/24 by Jorge Armstrong MD aspirin 81 mg PO DAILY cephalexin 500 mg PO BID cholecalciferol (vitamin D3) 10 mcg PO DAILY fluticasone propionate 50 mcg/actuation (Flonase Allergy Relief) 1 spray intranasal DAILY omega 5-pqj-vdp-fish oil 100-160-1,000 mg (Fish Oil) caps PO omeprazole 20 mg PO DAILY sertraline 50 mg PO DAILY sulfamethoxazole-trimethoprim 800-160 mg 1 tab PO BID HPI Comments Details: 74-year-old female patient status post excision of a large epidermal inclusion cyst of the back 1 week ago. She tolerated the procedure well and just reports itchiness in the incision. She returns today for wound check. [facility] Surgical History Hx of colonoscopy (04/2010) Family History Brother Cancer Brother Colon cancer Social History Alcohol intake: current Alcohol intake frequency: holidays/special occasions only Patient Tobacco Use Status: Never used Tobacco Physical Exam Vital Signs: Last Vital Signs Pulse 84 10/11/24 13:16 BP 136/68 10/11/24 13:16 BMI result Body Mass Index 32.1 Const General: comfortable Nutritional Appearance: well nourished Orientation/consciousness: patient oriented x3 Back/Spine/Pelvis Other: Transverse incision in the upper back is clean, dry, and intact without redness or discharge. Sutures removed and wounds found to be well healed. Back/spine/pelvis image: 1. Incision upper midback Neuro General: patient oriented x3 Assessment & Plan Assessment & Plan (1) Epidermal inclusion cyst: Code(s): L72.0 - Epidermal cyst Category: Medical Plan 74-year-old female patient status post excision of an epidermal inclusion cyst of the upper midback. She tolerated the procedure well and her wounds are healing nicely. She should follow up as needed. Coding Level of Care Code Global (21929) Diagnoses Epidermal inclusion cyst L72.0
[2024-10-11 13:16] VITALS: BP 136/68; PULSE 84; BMI 32.1
--- OUTSIDE RECORDS SUMMARY | 2024-10-11 14:12 | XMS_ITS ---
Author Organization Vik Herring MD Address [address] [place], [place] [phone] Care Team Providers Care Induction Coordination Engineer Name Role Phone Nima Vik Primary Care Provider [phone] Results Component Value Reference Range Notes Complete Blood Count Auto Di ff Reviewed date:08/24/2024 12:46:19 PM Interpretation: Performing Lab:[facility], [address] [place] [phone] Notes/Report: White Blood Count 7.8 4.8-10.8 X10*3/uL [...] Location Date Provider Diagnosis Vik Herring MD [address] [place] [address] [place] [phone] 08/24/2024 Vik Herring Labile hypertension I10 and Hypercholesterolemia E78.00 Assessments Encounter Date Diagnosis (ICD Code) Assessment Notes Treatment Notes Treatment Clinical Notes Section Notes 08/24/2024 Labile hypertension (ICD-10 - I10) 08/24/2024 Hypercholesterolemia (ICD-10 - E78.00) Plan Of Treatment Pending Test Test Name Order Date Comprehensive [place]. Panel Fast Lipid Panel 08/24/2024 UA ClnCatch+Micro w/rflx Cult 08/24/2024 Next Appt Details Provider Name:Vik ashley, 11/13/2024 10:15:00 AM, [address] [place] [address], [place] [address], [place], [place], [phone], Provider Name:Vik ashley, 08/27/2025 08:00:00 AM, [address] [place] [address], Suite [facility], [place], [place], [phone], Provider Name:Vik ashley, 09/03/2025 02:30:00 PM, [address] [facility], [address], [place], [place], [phone], Progress Notes * Regi WARNER ADOB:[birth year] (74 yo F)Acc No.[id number]:08/24/2024 Progress Note Patient:?Regi WARNER Provider:?Vik Herring MD :1950???Age:74 Y???Sex:Female D ate:08/24/2024 Address:[address] [place] [address] [id number] Subjective: * Chief Complaints: * ???1. Yearly fasting labs. * Medical History:? Objective: * Vitals:? Assessment: * Assessment: 1.?Labile hypertension - I10 (Primary)???2.?Hypercholesterolemia - E78.00??? Plan: * Treatment: 2.?Hypercholesterolemia?LAB: Comprehensive [place]. Panel Fast ?LAB: Lipid Panel ?LAB: UA ClnCatch+Micro w/rflx Cult ?LAB: Complete Blood Count Auto Diff (Collection Date & Time - 08/24/2024 07:15 AM) * Procedure Codes:?67987 VENIP UNCT, ROUTINE* * * The named appointment provid er may or may not be the originator of this progress note, and it is not deemed complete until electronically signed by the appointment provider. Sign off status: Pending * Provider:?Vik Herring MD Date:?0 08/24/2024 Generated for Angella wang/Selena/eTransmitting on:?10/11/2024 02:12 PM EDT
--- OUTSIDE RECORDS SUMMARY | 2024-10-11 14:12 | XMS_ITS ---
Author Organization [facility] Address [address] [place] [address] Care Team Providers Care Manager Recovery Name Role Phone Vik Herring MD Primary Care Provider Cesar Arauz Unavailable [phone] Allergies Allergen (clinical drug ingredient) Drug/Non Drug Allergy documented on EMR Reaction Allergy Type Onset Date Status Seasonal IC Unknown Drug Allergy Activ e REASON FOR VISIT Patient presents today for a colon screening/EGD Medications Medication SIG (Take, Route, Fr equency, Duration) Notes Start Date End Date Status Omeprazole 20 MG TAKE 1 CAPSULE BY [facility] DAILY Oral Active Valsartan 80 [...] Risk Notes Problem Gastroesophageal reflux disease (disorder) (290001382) Chronic GERD (K21.9) Active confirmed Problem Screening for malignant neoplasm of colon (711744675) Encounter for screening for malignant neoplasm of colon (Z12.11) Active confirmed Vital Signs Temperature 97.1 degrees Fahrenheit 07/12/19 25 Blood pressure systolic 000 mm Hg 07/12/19 25 Blood pressure diastolic 00 mm Hg 025 Height 64 in 07/12/2024 Weight 192 lb 2 oz lbs 07/12/2024 BMI 32.97 kg/m2 07/12/2024 Encounters Encounter Location Date Provider Diagnosis [facility] [address] [place] [address] 07/12/2024 Cesar Rosalio Other irritable bowel syndrome [...] Provider Name:Cesar Santamaria , 10/17/2024 10:30:00 AM, [address] [place] [address] , [place], [place], [phone], Progress Notes * REGI WARNER ADOB:[birth year] (74 yo F)Acc No.[id number]:07/12/2024 Progress Notes Patient:REGI EDMONDS Provider:?Cesar Santamaria MD :1950???Age:74 Y???Sex:Female D ate:07/12/2024 Address:[address] [place] [address] , [place] , [facility] Pcp:Vik Herring MD Subjective: * Chief Complaints: [...] Procedure Codes:?3017F COLOR ECTAL CA SCREEN DOC XHE8320U TOBACCO NON-RYSBY7203 BP SCR NOT PRFRM REC REASON NOS [...] MD Date:? 025 Generated for Angella wang/Selena/Deo on:?10/11/2024 02:12 PM EDT History and Physical Notes * [...]
--- OUTSIDE RECORDS SUMMARY | 2024-10-11 14:12 | XMS_ITS | Patient Health Record ---
Author Organization [facility] Address [address] [place] [address] Care Team Providers Care Fabric Normalizer Name Role Phone Vik Herring MD Primary Care Provider Cesar Arauz Unavailable [phone] Allergies Allergen (clinical drug ingredient) Drug/Non Drug Allergy documented on EMR Reaction Allergy Type Onset Date Status Seasonal IC Unknown Drug Allergy Activ e Reason For Referral No Information Medications Medication SIG (Take, Route, Fr equency, Duration) Notes Start Date End Date Status Omeprazole 20 MG TAKE 1 CAPSULE BY [facility] DAILY Oral Active Valsartan 80 MG [...] Problem Screening for malignant neoplasm of colon (574587746) Encounter for screening for malignant neoplasm of colon (Z12.11) Active confirmed Problem 732379485 Change in bowel habits (R19.4) Active confirmed Problem 72083221 Blood in stool (K92.1) Active confirmed Problem 759863714 Family history of colon cancer (Z80.0) Active confirmed Problem 65134465 Other irritable bowel syndrome (K58.8) Active confirmed Problem Gastroesophageal reflux disease (disorder) (318236534) Chronic GERD (K21.9) Active confirmed Vital Signs Temperature 97.1 degrees Fahrenheit 07/12/2024 Blood pressure diastolic 00 mm Hg 07/12/2024 Height 64 in 07/12/2024 Blood pressure systolic 000 mm Hg 07/12/2024 Weight 192 lb 2 oz lbs 07/12/2024 BMI 32.97 kg/m2 07/12/2024 Encounters Encounter Location Date Provider Diagnosis [facility] [address] [place] [address] 07/12/2024 Cesar Santamaria Other irritable bowel syndrome [...] Name:Cesar Santamaria , 10/17/2024 10:30:00 AM, [address] [facility] , [place], [place], [phone], Insurance Providers Payer Name Payer Address Payer Phone Subscriber Number Group Number Insured Name Patient Relationship to Insured Coverage Start Date Coverage End Date MEDICARE OF [place] [address] [place] [address] [id number] REGI WARNER Self - patient is the insured MED[employer] ATTN CLAIMS [address] [place] [address] [id number] REGI WARNER Self - patient is the insured Medical (General) History Medical History History ICD Code Denies [place],DM,CVA,Lung disease,renal dise ase Urinary incontinence-mild GERD--EGD in 2004--small hia josé antonio hernia--no esophagitis nor Gee's esophagus Anxiety/depression--mild Hematuria--having a cystoscopy in 7 negative colonoscopies in , 2004, 2009, and 07/2017--- sigmoid diverticulosis and internal hemorrhoids Arthritis Hypertension Polymyalgia rheumatica Surgical History Surgery Date(Month/Year)
--- OUTSIDE RECORDS SUMMARY | 2024-10-11 14:13 | XMS_ITS ---
Author Organization Vik Herring MD Address [address] [place] [phone] Care Team Providers Care Glass Blowing Lathe Operator Name Role Phone OsminReyna whittn Primary Care Provider Allergies No Known Allergies Reason For Referral Reason ABSCESS Diagnosis 1 Abscess (L02.91) Referral Organization Vik Herring MD Referring Provider First Name Vik Referring Provider Last Name Nima Referring Provider Speciality Internal M edicine Referred Provider Jorge Armstrong Referred Provider Specialty Surgery General Notes Veronica Hernanedz 09/18/2024 01:13:25 PM >APPT SCHEDULED WITH DR ARMSTRONG FOR 09/20/24 AT 1PM, PATIENT AWARE.REFERR[facility] SURGERYMary Patti A 09/21/2024 12:48:16 PM >office note recd Referral Priority Routine Referral Appointment Date 09/20/2024 REASON FOR VISIT left leg infected pimple x 5 days [phone]--[phone] video, Changed from Telehealth patient coming into [...] Date Provider Diagnosis Vik Herring MD [address] [place] [phone] 09/18/2024 Vik Herring Abscess L02.91 Assessments Encounter [...] Jorge Armstrong Next Appt Details Provider Name:Vik Snell ier, 11/13/2024 10:15:00 AM, [address], [address], [place], [phone], Provider Name:Vik roser, 08/27/2025 08:00:00 AM, [address], [address], [place], [phone], Provider Name:Vik roser, 09/03/2025 02:30:00 PM, [address], [address], [place], [phone], Progress Notes * WARNERBlanca SMITHh ADOB:[birth year] (74 yo F)Acc No.[id number]:09/18/2024 Progress Notes Patient:?WARNER, Regi A Provider:?Vik Herring MD :1950???Age:74 Y???Sex:Female D ate:09/18/2024 Address:[address] [place] [address] , [place] , [id number] Subjective: * Chief Complaints: * ???Left leg infected pimple x 5 days 557--7557 videoChanged from Telehealth patient coming into the [...] MD Date:?0 09/18/2024 Generated for Angella wang/Selena/eTransmitting on:?10/11/2024 02:12 PM EDT History and Physical [...]
--- OUTSIDE RECORDS SUMMARY | 2024-10-11 14:13 | XMS_ITS ---
Author Organization Vik Herring MD Address [address] [place] [phone] Care Team Providers Care Design Chief Name Role Phone Nima Vik Primary Care Provider Allergies No Known Allergies Results Component Value Reference Range Notes UA ClnCatch+Micro w/rflx Cul t Reviewed date:08/30/2024 05:02:13 PM Interpretation: Performing Lab:[facility], [address] [place] [phone] Notes/Report: Urine, Clean Catch Color Urine Yellow Appearance Urine Clear PH 5.5 5.0-9.0 Glucose Urine UA Negative Negative mg/dL Urine Blood Negative Negative Specific [place] - Urine >= 1.030 1.005-1.025 Urine Protein [...] Location Date Provider Diagnosis Vik Herring MD [address] [place] [address] [address] [place], [place] [phone] 08/30/2024 Vik Herring History of hematuria Z87.448 [...] Reason: Provider Name:Vik ashley, 11/13/2024 10:15:00 AM, [address] [place] [address], [address], [phone], Provider Name:Vik ashley, 08/27/2025 08:00:00 AM, [address] [place] [address], [place] [address], [place], [place], [phone], Provider Name:Vik ashley, 09/03/2025 02:30:00 PM, [address] [place] [address], [address], [phone], Progress Notes * Regi WARNER ADOB:[birth year] (74 yo F)Acc No.[id number]:08/30/2024 Patient:?WARNER, Regi A Provider:?Vik Herring MD :1950???Age:74 Y???Sex:Female D ate:08/30/2024 [facility] [address] [address] [id number] Subjective: * Chief Complaints: * ???Comp visit [...] no masses palpable.?RECTAL EXAM:?not done.?FEMALE GENITOURINARY:?done by water/wastewater project engineer.?EXTREMITIES:?no clubbing, cyanosis, or edema.?NEUROLOGIC:?nonfocal, motor strength normal [...] Herring MD Date:?0 08/30/2024 Generated for Angella wang/Selena/Deo on:?10/11/2024 02:12 PM [...] EXAM: not done FEMALE GENITOURINARY: done by water/wastewater project engineer ORAL CAVITY: mucosa moist
== END 2024-10-11 13:26 | disposition home or self-care (01) ==
PROVIDERS: PCP Internal Medicine; Visit Provider Surgery
DX: L72.0 Epidermal cyst (principal)
CPT/HCPCS: 99024

== ENCOUNTER → 2024-10-11 13:01 | Outpatient (BNVA) | payer MEDICARE, SELFPAY | PROVIDERS: PCP Internal Medicine; Visit Provider Surgery | DX: Z48.02 Encounter for removal of sutures (principal); Z87.2 Personal history of diseases of the skin and subcutaneous tissue; Z98.890 Other specified postprocedural states | CPT/HCPCS: 99212 ==

== ENCOUNTER 2024-10-17 08:36 | Day surgery (SDC) | payer MEDICARE, SELFPAY ==
[2024-10-15 10:01] VITALS: BMI 33.0
--- NOTE | 2024-10-17 08:32 | P.CONAN_ITS ---
[facility] Active Problems Active Problems: All Active Problems Epidermal inclusion cyst (Acute) Abscess of thigh (Acute) Past Medical History Medical History Polymyalgia rheumatica HTN (hypertension) Arthritis Hematuria Depression Anxiety Hiatal hernia GERD (gastroesophageal reflux disease) Urinary incontinence Functional capacity: independent ambulation Patient : No Family History Family History Brother Cancer Brother Colon cancer Family history of problems with anesthesia: No Surgical History Surgical History History of esophagogastroduodenoscopy (EGD) Hx of colonoscopy (04/2010) History of Problems with Anesthesia: No Social History Social History Are you a primary healthcare advisory services manager to a significant other at home: No Do you presently have visiting nurse or other home services: No Alcohol intake: current Alcohol intake frequency: holidays/special occasions only Patient Tobacco Use Status: Never used Tobacco Meds Allergies Allergy/AdvReac Type Severity Reaction Status Date / Time No Known Allergies Allergy Verified 10/11/24 13:18 Home Medications ?Medication ?Instructions ?Recorded ?Confirmed ?Last Taken ?Type aspirin 81 mg tablet,delayed 81 mg PO DAILY 09/20/24 10/11/24 Unknown History release cholecalciferol (vitamin D3) 10 20 mcg PO DAILY 09/20/24 10/15/24 Unknown History mcg (400 unit) tablet omega 8-fuo-nul-fish oil 100 1 cap PO DAILY 09/20/24 10/15/24 Unknown History mg-160 mg-1,000 mg capsule (Fish Oil) omeprazole 20 mg delayed 20 mg PO DAILY 09/20/24 10/15/24 Unknown History release,disintegrating tablet sertraline 50 mg tablet 100 mg PO DAILY 09/20/24 10/15/24 Unknown History calcium carbonate 500 mg PO DAILY 10/15/24 10/15/24 Unknown History valsartan 80 mg tablet 80 mg PO DAILY 10/15/24 10/15/24 Unknown History Exam Height,Weight and Vital Signs: Height 5 ft 4 in Weight 87.09 kg Airway TM Dist: >3cm Neck ROM: Full Heart: RRR Lungs: CTA Assessment and Plan Assessment Anesthesia Assessment: Anesthesia Plan Discussed Final Anesthetic Review Family History of Problems with Anesthesia: No History of Problems with Anesthesia: No NPO: Yes ASA Class: II Final Preanesthetic Review: Meds/Allgs Chart Reviewed, Consent Obtained/Reviewed and Anes Risks/Benef Reviewed Patient Risk: Low Procedure Risk: Low Anesthetic Plan Anesthetic Plan: MAC: Disposition: Standard PACU
--- OUTSIDE RECORDS SUMMARY | 2024-10-17 08:43 | XMS_ITS ---
Author Organization Vik Herring MD Address [address] [place] [phone] Care Team Providers Care Mechanical Maintenance Supervisor Name Role Phone OsminReyna whittn Primary Care Provider [phone] Allergies No Known Allergies Reason For Referral [...] 1PM, PATIENT AWARE.REFERRAL TO BE [facility] SURGERYMary Patti A 09/21/2024 12:48:16 PM >office note recd Referral Priority Routine Referral Appointment Date 09/20/2024 REASON FOR VISIT left leg infected pimple x 5 days 204--[phone] video, Changed from Telehealth patient coming into [...] Date Provider Diagnosis Vik Herring MD [address] [facility] [address] [place] [phone] 09/18/2024 Vik Herring Abscess L02.91 Assessments Encounter [...] AM, [address], [address], [place], [phone], Provider Name:Vik roser, 08/27/2025 08:00:00 AM, [address], [address], [place], [phone], Provider Name:Vik roser, 09/03/2025 02:30:00 PM, [address], [address], [place], [phone], Progress Notes * WARNERBlanca SMITHh ADOB:[birth year] (74 yo F)Acc No.[id number]:09/18/2024 Progress Notes Patient:?WARNER, Regi A Provider:?Vik Herring MD :1950???Age:74 Y???Sex:Female D ate:09/18/2024 Address:[address] [place] [address] , [place] , [id number] Subjective: * Chief Complaints: * ???Left leg infected pimple x 5 days 535--4247 videoChanged from Telehealth patient coming into the [...] MD Date:?0 09/18/2024 Generated for Angella wang/Selena/eTransmitting on:?10/17/2024 08:43 AM EDT History and Physical Notes * HPI [...]
--- OUTSIDE RECORDS SUMMARY | 2024-10-17 08:43 | XMS_ITS | Patient Health Record ---
Author Organization [facility] Address [address] [place] [address] Care Team Providers Care Account Installer Name Role Phone Vik Herring MD Primary Care Provider Cesar Arauz Unavailable [phone] Allergies Allergen (clinical drug ingredient) Drug/Non Drug Allergy documented on EMR Reaction Allergy Type Onset Date Status Seasonal IC Unknown Drug Allergy Activ e Reason For Referral No Information Medications Medication SIG (Take, Route, Fr equency, Duration) Notes Start Date End Date Status Omeprazole 20 MG TAKE 1 CAPSULE BY [facility] DAILY Oral Active Valsartan 80 MG 1 [...] Problem Screening for malignant neoplasm of colon (441232261) Encounter for screening for malignant neoplasm of colon (Z12.11) Active confirmed Problem 677424158 Change in bowel habits (R19.4) Active confirmed Problem 72948148 Blood in stool (K92.1) Active confirmed Problem 820638150 Family history of colon cancer (Z80.0) Active confirmed Problem 46052304 Other irritable bowel syndrome (K58.8) Active confirmed Problem Gastroesophageal reflux disease (disorder) (962668273) Chronic GERD (K21.9) Active confirmed Vital Signs Temperature 97.1 degrees Fahrenheit 07/12/2024 Blood pressure diastolic 00 mm Hg 07/12/2024 Height 64 in 07/12/2024 Blood pressure systolic 000 mm Hg 07/12/2024 Weight 192 lb 2 oz lbs 07/12/2024 BMI 32.97 kg/m2 07/12/2024 Encounters Encounter Location Date Provider Diagnosis [facility] [address] [place] [address] 07/12/2024 Cesar Santamaria Other irritable bowel syndrome [...] Appt Details Provider Name:Cesar Santamaria , 10/17/2024 09:30:00 AM, [address] [facility] , [place], [place], [phone], Insurance Providers Payer Name Payer Address Payer Phone Subscriber Number Group Number Insured Name Patient Relationship to Insured Coverage Start Date Coverage End Date MEDICARE OF [place] [address] [place] [address] [id number] REGI WARNER Self - patient is the insured [employer] ATTN CLAIMS [address] [place] [address] [id number] REGI WARNER Self - patient is the insured Medical (General) History Medical History History ICD Code Denies [place],DM,CVA,Lung disease,renal dise ase Urinary incontinence-mild GERD--EGD in 2004--small hia josé antonio hernia--no esophagitis nor Gee's esophagus Anxiety/depression--mild Hematuria--having a cystoscopy in 7 negative colonoscopies in , 2004, 2009, and 07/2017--- sigmoid diverticulosis and internal hemorrhoids Arthritis Hypertension Polymyalgia rheumatica Surgical History Surgery Date(Month/Year)
--- OUTSIDE RECORDS SUMMARY | 2024-10-17 08:43 | XMS_ITS ---
Author Organization [facility] Address [address] [place] [address] Care Team Providers Care Sawmill Worker Name Role Phone Vik Herring MD Primary Care Provider Cesar Arauz Unavailable [phone] REASON FOR VISIT screening,hx polyps Encounters Encounter Location Date Provider Diagnosis [facility] [address] [place] [phone] 10/17/2024 Cesar Santamaria Plan Of Treatment Next Appt Details Provider Name:Cesar Santamaria , 10/17/2024 09:30:00 AM, [address] [facility] , [place], [place], [phone], Progress Notes * JEANNIE WARNER ADOB:[birth year] (74 yo F)Acc No.[id number]:10/17/2024 COLON WITH MAC Patient:?LEYDA WARNERH Sivakumar Provider:?Cesar Santamaria MD :1950???Age:74 Y???Sex:Female D ate:10/17/2024 Address:[address], [place] Pcp:Vik Herring MD Subjective: * Chief Complaints: * ???1. Screening,hx polyps. * Medical History:? Objective: * Vitals:? Assessment: Plan: * Treatment: * * The named appointment provid er may or may not be the originator of this progress note, and it is not deemed complete until electronically signed by the appointment provider. Sign off status: Pending * Provider:?Cesar Santamaria MD Date:? 025 Generated for Angella wang/Selena/Nachoitting on:?10/17/2024 08:42 AM EDT
--- OUTSIDE RECORDS SUMMARY | 2024-10-17 08:43 | XMS_ITS ---
Author Organization Vik Herring MD Address [address] [place] [phone] Care Team Providers Care Computer Systems Support Specialist Name Role Phone Nima Vik Primary Care Provider Allergies No Known Allergies Results Component Value Reference Range Notes UA ClnCatch+Micro w/rflx Cul t Reviewed date:08/30/2024 05:02:13 PM Interpretation: Performing Lab:[facility], [address] [place] [phone] Notes/Report: Urine, Clean Catch Color Urine Yellow Appearance Urine Clear PH 5.5 5.0-9.0 Glucose Urine UA Negative Negative mg/dL Urine Blood Negative Negative Specific [place] - Urine >= 1.030 1.005-1.025 Urine Protein [...] Location Date Provider Diagnosis Vik Herring MD [address] [place] [address] [address] [place], [place] [phone] 08/30/2024 Vik Herring History of hematuria Z87.448 [...] Reason: Provider Name:Vik ashley, 11/13/2024 10:15:00 AM, [address] [place] [address], [address], [phone], Provider Name:Vik ashley, 08/27/2025 08:00:00 AM, [address] [place] [address], [place] [address], [place], [place], [phone], Provider Name:Vik ashley, 09/03/2025 02:30:00 PM, [address] [place] [address], [address], [phone], Progress Notes * Regi WARNER ADOB:[birth year] (74 yo F)Acc No.[id number]:08/30/2024 Patient:?WARNER, Regi A Provider:?Vik Herring MD :1950???Age:74 Y???Sex:Female D ate:08/30/2024 [facility] [address] [id number] Subjective: * Chief Complaints: * ???Comp visit [...] no masses palpable.?RECTAL EXAM:?not done.?FEMALE GENITOURINARY:?done by registration coordinator.?EXTREMITIES:?no clubbing, cyanosis, or edema.?NEUROLOGIC:?nonfocal, motor strength normal [...] MD Date:?0 08/30/2024 Generated for Angella wang/Selena/Nachoitting on:?10/17/2024 08:43 AM EDT History and Physical [...] EXAM: not done FEMALE GENITOURINARY: done by registration coordinator ORAL CAVITY: mucosa moist
--- OUTSIDE RECORDS SUMMARY | 2024-10-17 08:43 | XMS_ITS ---
Author Organization Vik Herring MD Address [address] [place] [phone] Care Team Providers Care Bird Cage Assembler Name Role Phone Nima Vik Primary Care Provider [phone] Results Component Value Reference Range Notes Complete Blood Count Auto Di ff Reviewed date:08/24/2024 12:46:19 PM Interpretation: Performing Lab:[facility], [address] [place] [phone] Notes/Report: White Blood Count 7.8 4.8-10.8 X10*3/uL [...] Location Date Provider Diagnosis Vik Herring MD [address] [place] [address] [place] [phone] 08/24/2024 Vik Herring Labile hypertension I10 and Hypercholesterolemia E78.00 Assessments Encounter Date Diagnosis (ICD Code) Assessment Notes Treatment Notes Treatment Clinical Notes Section Notes 08/24/2024 Labile hypertension (ICD-10 - I10) 08/24/2024 Hypercholesterolemia (ICD-10 - E78.00) Plan Of Treatment Pending Test Test Name Order Date Comprehensive [place]. Panel Fast Lipid Panel 08/24/2024 UA ClnCatch+Micro w/rflx Cult 08/24/2024 Next Appt Details Provider Name:Vik ashley, 11/13/2024 10:15:00 AM, [address] [place] [address], [place] [address], [place], [place], [phone], Provider Name:Vik ashley, 08/27/2025 08:00:00 AM, [address] [place] [address], [address] [facility], [place], [place], [phone], Provider Name:Vik ashley, 09/03/2025 02:30:00 PM, [address] [facility], [address], [place], [place], [phone], Progress Notes * Regi WARNER ADOB:[birth year] (74 yo F)Acc No.[id number]:08/24/2024 Progress Note Patient:?Regi WARNER Provider:?Vik Herring MD :1950???Age:74 Y???Sex:Female D ate:08/24/2024 Address:[address] [place] [address] AIXA BENNETT [id number] Subjective: * Chief Complaints: * ???1. Yearly fasting labs. * Medical History:? Objective: * Vitals:? Assessment: * Assessment: 1.?Labile hypertension - I10 (Primary)???2.?Hypercholesterolemia - E78.00??? Plan: * Treatment: 2.?Hypercholesterolemia?LAB: Comprehensive [place]. Panel Fast ?LAB: Lipid Panel ?LAB: UA ClnCatch+Micro w/rflx Cult ?LAB: Complete Blood Count Auto Diff (Collection Date & Time - 08/24/2024 07:15 AM) * Procedure Codes:?52863 VENIP UNCT, ROUTINE* * * The named appointment provid er may or may not be the originator of this progress note, and it is not deemed complete until electronically signed by the appointment provider. Sign off status: Pending * Provider:?Vik Herring MD Date:?0 08/24/2024 Generated for Angella wang/Selena/eTransmitting on:?10/17/2024 08:42 AM EDT
--- OUTSIDE RECORDS SUMMARY | 2024-10-17 08:43 | XMS_ITS ---
Author Organization [facility] Address [address] [place] [address] Care Team Providers Care Marketing Proposal Specialist Name Role Phone Vik Herring MD Primary Care Provider Cesar Arauz Unavailable [phone] Allergies Allergen (clinical drug ingredient) Drug/Non Drug Allergy documented on EMR Reaction Allergy Type Onset Date Status Seasonal IC Unknown Drug Allergy Activ e REASON FOR VISIT Patient presents today for a colon screening/EGD Medications Medication SIG (Take, Route, Fr equency, Duration) Notes Start Date End Date Status Omeprazole 20 MG TAKE 1 CAPSULE BY MO [facility] DAILY Oral Active Valsartan 80 MG [...] Risk Notes Problem Gastroesophageal reflux disease (disorder) (308409360) Chronic GERD (K21.9) Active confirmed Problem Screening for malignant neoplasm of colon (315739318) Encounter for screening for malignant neoplasm of colon (Z12.11) Active confirmed Vital Signs Temperature 97.1 degrees Fahrenheit 07/12/19 25 Blood pressure systolic 000 mm Hg 07/12/19 25 Blood pressure diastolic 00 mm Hg 025 Height 64 in 07/12/2024 Weight 192 lb 2 oz lbs 07/12/2024 BMI 32.97 kg/m2 07/12/2024 Encounters Encounter Location Date Provider Diagnosis [facility] [address] [place] [address] 07/12/2024 Cesar Rosalio Other irritable bowel syndrome [...] prn, Reason: Provider Name:Cesar Santamaria , 10/17/2024 09:30:00 AM, [address] [place] [address] , [place], [place], [phone], Progress Notes * REGI WARNER ADOB:[birth year] (74 yo F)Acc No.[id number]:07/12/2024 Progress Notes Patient:REGI EDMONDS Provider:?Cesar Santamaria MD :1950???Age:74 Y???Sex:Female D ate:07/12/2024 Address:[address] [place] [address] , [place] , [facility] Pcp:Vik Herring MD Subjective: * Chief Complaints: [...] Procedure Codes:?3017F COLOR ECTAL CA SCREEN DOC [id number] TOBACCO NON-[id number] BP SCR NOT PRFRM REC REASON NOS [...] MD Date:? 025 Generated for Angella wang/Selena/Deo on:?10/17/2024 08:43 AM EDT History and Physical [...]
[2024-10-17 08:45] VITALS: BMI 32.0
[2024-10-17 08:58] VITALS: BP 143/82; PULSE 85; RESP 16; TEMP 36.6; O2SAT 96
[2024-10-17] MEDS: Lactated Ringers 1,000 ML 100 ML IVCONT (09:11)
[2024-10-17 10:03] VITALS: BP 113/57; PULSE 70; RESP 16; TEMP 36.6; O2SAT 93
--- NOTE | 2024-10-17 10:08 | PM.OP ---
Brief Operative Note Date of Service: 10/17/24 Pre-op diagnosis: Screening Post-op diagnosis: other (Polyps) Procedure: Colonoscopy to the cecum with bx/removal of cecal polyp, and cold snare polypectomy x 3 Surgeon: Cesar Santamaria MD Anesthesia: MAC Was an Mortgage Analyst used for this Procedure?: No Estimated blood loss (mL): 2.0 Pathology: other (A. Hepatic flexure polyp B. Cecal polyp C. Transverse colon polyps) Condition: stable Disposition: PACU
[2024-10-17 10:27] VITALS: BP 110/61; PULSE 63; RESP 18; TEMP 36.8; O2SAT 97
--- NOTE | 2024-10-17 10:28 | OP_ITS ---
DATE OF SERVICE: 10/17/2024 SURGEON: Cesar Santamaria MD INDICATIONS: The patient presents for evaluation of colorectal cancer screening and family history of colon cancer. Full consent has been obtained from her for this, including risks of bleeding and perforation. PREOPERATIVE DIAGNOSIS: POSTOPERATIVE DIAGNOSIS: PROCEDURE PERFORMED: Colonoscopy to cecum with cold snare polypectomy x3 and biopsy and removal of cecal polyp. ESTIMATED BLOOD LOSS: COMPLICATIONS: ANESTHESIA: Monitored anesthesia care. ASSISTANTS: SPECIMENS: PREOPERATIVE DIAGNOSES: Colorectal cancer screening and family history of colon cancer. POSTOPERATIVE DIAGNOSES: Colorectal cancer screening and family history of colon cancer, colon polyps, diverticulosis, internal hemorrhoids. DESCRIPTION OF PROCEDURE: The patient was placed in the left lateral decubitus position. The digital rectal exam revealed no abnormalities. The Olympus videopediatric colonoscope was entered into the rectum and advanced easily to the cecum. Once in the cecum, I did identify normal-appearing cecal pouch other than a 3 mm polyp, which was biopsied and completely removed with cold biopsy forceps. The remainder of the cecum including the appendiceal orifice appeared normal. There was transillumination of light deep in the right lower quadrant. The scope was slowly withdrawn assessing all mucosal surfaces carefully. Preparation was excellent. In the area of the hepatic flexure, was an approximately 6 mm polyp, which was removed by cold snare polypectomy, recovered by suction. In the transverse colon, there were 2 approximately 6 mm polyps, which were also both removed by cold snare polypectomy and recovered by suction. They were placed in the same container. All 3 of the polypectomy sites appeared clean, without any sign of residual polyp nor significant bleeding. I did not visualize any other polyps, colitis, nor angiodysplasia. There was a mild amount of sigmoid diverticulosis. In the rectum, scope was retroflexed visualizing internal hemorrhoids, but no other pathology. The rectal mucosa appeared normal. Scope was straightened and withdrawn from the patient. She tolerated the procedure well and was returned to the recovery area in stable condition. IMPRESSION: 1. Colon polyps. 2. Diverticulosis. 3. Internal hemorrhoids. PLAN: The results of the pathology will be checked. Given these relatively minimal findings and her age, I do not think she would need any further screening colonoscopies going forward. She was advised not to use any aspirin, NSAIDs, nor fish oil for 1 more week. MD RENE Bravo/SUN / [id number]
== END 2024-10-17 11:03 | disposition home or self-care (01) ==
PROVIDERS: PCP Internal Medicine; Visit Provider Internal Medicine
PROC: 0DJD8ZZ Inspection of Lower Intestinal Tract, Via Natural or Artificial Opening Endoscopic (ICD-10-PCS; CPT 45378; principal; 2024-10-17 09:30)
DX: Z12.11 Encounter for screening for malignant neoplasm of colon (principal); Z80.0 Family history of malignant neoplasm of digestive organs; D12.0 Benign neoplasm of cecum; D12.3 Benign neoplasm of transverse colon; K57.30 Diverticulosis of large intestine without perforation or abscess without bleeding; K64.8 Other hemorrhoids; K58.8 Other irritable bowel syndrome; K21.9 Gastro-esophageal reflux disease without esophagitis; I10 Essential (primary) hypertension; M35.3 Polymyalgia rheumatica; F41.9 Anxiety disorder, unspecified; R32 Unspecified urinary incontinence; Z79.899 Other long term (current) drug therapy
CPT/HCPCS: 45385; 45380; 88305; J2003; J2704